=== PATIENT | male | born 1950 | race Caucasian/White ===

== ENCOUNTER 2018-05-28 13:38 | Inpatient (IN) ==
[2018-05-28] MEDS ORDERED: DUONEB (A & A) INH ONE (14:14)
[2018-05-28] MEDS ORDERED: SOLU-MEDROL IV ONE (14:14)
[2018-05-28 14:51] LABS: BE 3.4 mmoll (-3.0-3.0); BLOOD TYPE ARTERIAL; HCO3-(ACT) 27.4 mmoll (20.0-26.0); O2(CT) 15.2 mL/dL (15.0-23.0); PO2(98.6) 89 mmHg (60-100); SAMPLE BLOOD; SAO2 98.4 % (95.0-100.0); pH(98.6) 7.27 (7.35-7.45)
[2018-05-28 14:53] LABS: BASO# 0.05 X1000 (0.0-0.2); BASO% 0.5 % (0.0-0.8); EOS# 0.32 X1000 (0.0-0.7); HEMATOCRIT 35.9 % (42.0-52.0); HEMOGLOBIN 11.1 g/dL (14.0-18.0); IMM GRAN# 0.05 X1000 (0.0-0.04); IMM GRAN% 0.5 % (0.0-0.5); LYMPH# 1.71 X1000 (1.2-3.4); MCH 31.5 PG (27-31); MCHC 30.9 g/dL (33-37); MONO# 0.66 X1000 (0.11-0.59); MONO% 6.2 % (1.7-9.3); MPV 11.2 FL (7.4-10.4); NEUT# 7.91 X1000 (1.4-6.5); NEUT% 73.8 % (42.2-75.2); PLT 152 X1000 (130-400); RBC 3.52 XMIL (4.7-6.1); RDW 13.4 % (11.5-14.5)
[2018-05-28 14:53] LABS: PCO2(98.6) 70 mmHg (35-45)
[2018-05-28 14:54] LABS: ALLEN TEST YES; MODALITY CANNULA; O2HB 89.5 % (95.0-99.0)
--- NOTE | 2018-05-28 14:58 | Diag Imaging Result Doc PS360 ---
EXAM: CT HEAD W/O CONTRAST HISTORY: passed out TECHNIQUE: CT head without contrast COMPARISON: 01/12/2018 FINDINGS: No parenchymal hemorrhage. No epidural or subdural hematoma. No subarachnoid hemorrhage. There are mild microvascular ischemic changes. No mass identified on this noncontrasted exam. No hydrocephalus. No sinus opacification. Minimal mucus in the ethmoid and right sphenoid sinuses. IMPRESSION: 1.No hemorrhage 2.Mild microvascular ischemic changes. This exam was performed using automated exposure control, adjustment of mA or kV according to patient size, and/or use of iterative reconstruction technique. Electronically signed by Barrie Garcia 05/28/2018 2:56 PM
--- NOTE | 2018-05-28 15:03 | Diag Imaging Result Doc PS360 ---
EXAM: CHEST-1 VIEW HISTORY: cough TECHNIQUE: Chest single view COMPARISON: 01/12/2018 FINDINGS: The lungs are well expanded. The heart is borderline mildly enlarged. The vessels are not distended. There are no infiltrates. No effusion identified. IMPRESSION: No pneumonia. Electronically signed by Barrie Garcia 05/28/2018 3:01 PM
[2018-05-28 15:09] LABS: URINE BACTERIA 1+ /HFP; URINE EPITHELIAL CELLS <10 /HPF (<10); URINE RBC <10 /HPF (<10)
[2018-05-28 15:10] LABS: BILIRUBIN URINE NEGATIVE (NEGATIVE); BLOOD URINE TRACE (NEGATIVE); CLARITY SLIGHTLY CLOUDY (CLEAR); COLOR YELLOW; GLUCOSE URINE NEGATIVE (NEGATIVE); KETONE URINE NEGATIVE (NEGATIVE); LEUKOCYTES URINE TRACE (NEGATIVE); NITRITE URINE NEGATIVE (NEGATIVE); PROTEIN URINE TRACE mg/dL (NEGATIVE); SP GRAVITY URINE 1.015; URINE SOURCE CLEAN CATCH; UROBILINOGEN URINE NORMAL
[2018-05-28 15:32] LABS: ALBUMIN 4.2 g/dL (3.5-5.0); CALCIUM 8.8 mg/dL (8.8-10.2); CREATININE 1.6 mg/dL (0.7-1.2); POTASSIUM 4.7 mmol/L (3.5-5.1); TOTAL BILIRUBIN 0.2 mg/dL (0.20-1.00)
[2018-05-28 17:04] LABS: BE 3.4 mmoll (-3.0-3.0); BLOOD TYPE ARTERIAL; HCO3-(ACT) 27.4 mmoll (20.0-26.0); METHB 1.1 % (0.0-1.5); O2(CT) 15.5 mL/dL (15.0-23.0); PO2(98.6) 71 mmHg (60-100); SAMPLE BLOOD; SAO2 96.7 % (95.0-100.0); THB 12.4 g/dL (11.5-17.4); pH(98.6) 7.28 (7.35-7.45)
[2018-05-28 17:10] LABS: MODALITY BI PAP; O2HB 88.6 % (95.0-99.0); PCO2(98.6) 68 mmHg (35-45)
[2018-05-28 17:11] LABS: ALLEN TEST YES; SRATE 14 BPM
[2018-05-28] MEDS ORDERED: ROCEPHIN IV ONE (17:36)
[2018-05-28 18:10] LABS: UR AMPHETAMINES QUAL NONE DETECTED (NONE DETECT); UR BARBITUATES QUAL NONE DETECTED (NONE DETECT); UR BENZODIAZEPIN QUAL PRESUMPTIVE POSITIVE (NONE DETECT); UR CANNABINOIDS QUAL NONE DETECTED (NONE DETECT); UR COCAINE QUAL NONE DETECTED (NONE DETECT); UR METHADONE QUAL NONE DETECTED (NONE DETECT); UR METHAMPHETAMINE QUAL NONE DETECTED (NONE DETECT); UR OPIATES QUAL PRESUMPTIVE POSITIVE (NONE DETECT); UR OXYCODONE QUAL PRESUMPTIVE POSITIVE (NONE DETECT); UR PCP QUAL NONE DETECTED (NONE DETECT); UR PROPOXYPHENE QUAL NONE DETECTED (NONE DETECT); UR TCA QUAL NONE DETECTED (NONE DETECT)
[2018-05-28] MEDS ORDERED: NORCO-5 PO ONE ×3 (18:21→18:56)
[2018-05-28] MEDS ORDERED: ZOFRAN IV PRN (18:56)
[2018-05-28] MEDS: DUONEB (A & A) INH SCH ×2 (20:40→23:38)
[2018-05-28] MEDS: NS 1,000 ML IV SCH (21:08)
[2018-05-28] MEDS: SEROQUEL PO SCH (21:08)
[2018-05-28] MEDS: RESTORIL PO SCH (21:09)
[2018-05-28] MEDS: SOLU-MEDROL IV SCH (23:26)
[2018-05-29] MEDS: SOLU-MEDROL IV SCH ×2 (06:05→15:22)
[2018-05-29 06:07] LABS: BE 4.8 mmoll (-3.0-3.0); BLOOD TYPE ARTERIAL; HCO3-(ACT) 28.6 mmoll (20.0-26.0); O2(CT) 16.4 mL/dL (15.0-23.0); O2HB 93.6 % (95.0-99.0); PO2(98.6) 74 mmHg (60-100); SAMPLE BLOOD; SAO2 97.3 % (95.0-100.0); THB 12.4 g/dL (11.5-17.4); pH(98.6) 7.36 (7.35-7.45)
[2018-05-29 06:11] LABS: ALLEN TEST YES; MODALITY BI PAP; PCO2(98.6) 56 mmHg (35-45)
[2018-05-29] MEDS: DUONEB (A & A) INH SCH ×5 (07:25→23:05)
[2018-05-29 07:49] LABS: CREATININE 1.2 mg/dL (0.7-1.2); POTASSIUM 5.2 mmol/L (3.5-5.1)
[2018-05-29] MEDS ORDERED: ROCEPHIN 1 GM in NS 50 ML IV SCH (08:45)
[2018-05-29] MEDS: BUSPAR PO SCH (08:46)
[2018-05-29] MEDS: PRINIVIL PO SCH (08:47)
[2018-05-29] MEDS: NEURONTIN PO SCH (08:47)
[2018-05-29] MEDS: ZITHROMAX PO SCH (08:50)
--- NOTE | 2018-05-29 10:23 | PROVIDER DOCUMENTATION ---
This chart was entered by Romi Miller Scribe, acting as scribe for Charline Alford MD. HPI-Respiratory General - General Chief Complaint: General Adult Stated Complaint: DIZZINESS.FAINTING Time Seen by Provider: 05/28/18 14:12 Source: patient Allergies/Adverse Reactions: Patient Allergies Allergy/AdvReac Type Severity Reaction Status Date / Time morphine Allergy Mild ITCHING Verified 05/28/18 14:19 Penicillins Allergy RASH Verified 05/28/18 14:19 Home Medications: Home Medication List Medication Instructions Recorded Confirmed Last Taken Type Albuterol Sulfate [Ventolin Hfa] 2 puff INH Q4-6H PRN PRN 01/12/18 05/28/18 Unknown History Lisinopril 1 tab PO DAILY 01/12/18 05/28/18 01/11/18 History Gabapentin [Neurontin] 300 mg PO DAILY #15 cap 01/15/18 05/28/18 Unknown Rx Omeprazole 1 cap PO DAILY #15 capsule. 01/15/18 05/28/18 Unknown Rx Buspirone HCl 10 mg PO DAILY 05/28/18 05/28/18 Unknown History Fluticasone/Salmeterol [Advair 1 puff INH BID 05/28/18 05/28/18 Unknown History 500-50 Diskus] Furosemide 1 tab PO DAILY 05/28/18 05/28/18 Unknown History Meloxicam 15 mg PO DAILY 05/28/18 05/28/18 Unknown History Potassium Chloride 10 meq PO DAILY 05/28/18 05/28/18 Unknown History Quetiapine Fumarate 50 mg PO QHS 05/28/18 05/28/18 Unknown History Temazepam 30 mg PO QHS 05/28/18 05/28/18 Unknown History Tizanidine HCl 4 mg PO BID 05/28/18 05/28/18 Unknown History - History of Present Illness-Resp Nature of Presenting Problem: 67yom with hx of COPD, HTN, and kidney stones c/o headache for 2 days with syncopal episode, cough, and wheezing since last night. He reports he had a syncopal episode with loc last night while walking in the kitchen. He reports he is a current smoker. He reports he is on oxygen at home. He reports he walks without assistance and drives his private vehicle without assistance. He denies fever, chills, nausea, vomiting, diarrhea, cp. The patient's is at bedside. Quality of Pain: reports: aching Severity in ED: reports: mild Onset/Duration: reports: 2 days ago, last night Timing: reports: still present, intermittent, constant Cough Quality/Degree: reports: mild, dry cough Episode Frequency: other (hx of COPD) Current Respiratory Medication Therapy: Initiated see nurses note Modifying Factors: improves with: nothing Associated Symptoms: reports: cough, wheezing. denies: fever/chills Similar Symptoms Previously?: No Recently seen or treated by another doctor?: No Review of Systems - Adult - REVIEW OF SYSTEMS - ADULT Constitutional: denies: chills, fever Eyes: denies: discharge, dry eyes Ears, Nose, Mouth & Throat: denies: ear discharge, ear pain Cardiovascular: denies: chest pain, palpitations Respiratory: reports: cough, wheezing. denies: shortness of breath Gastrointestinal: denies: abdominal pain, nausea, vomiting Genitourinary: denies: dysuria, hematuria Musculoskeletal: denies: back pain, muscle aches, muscle weakness Integumentary: reports: no symptoms reported Neurological: reports: headache/migraines, syncope. denies: dizziness/vertigo Psychiatric: reports: no symptoms reported Endocrine: reports: no symptoms reported Hematologic/Lymphatic: reports: no symptoms reported Allergic/Immunologic: reports: no symptoms reported All Other Systems: Reviewed and Negative Past History - Adult - PAST MEDICAL HISTORY-ADULT Review of Records: reports: Old Records Reviewed, Nursing Assessment Review, Medications Reviewed Major Childhood Illnesses: reports: denies history Cardiovascular: reports: HTN Respiratory: reports: COPD Gastrointestinal: reports: cholelithiasis Genitourinary: reports: kidney stones Musculoskeletal: reports: arthritis (gout), chronic pain (back problems, shoulders and hips.), intervertebral disc disease Other Conditions: reports: cataract/glaucoma, other (several accidental overdoses due to overuse of pain medications) - PRIOR SURGERIES/PROCEDURES Surgical/Procedure History: reports: cholecystectomy, back/neck (cervical diskectomy, ), other (kidneystones) - PRIOR HOSPITALIZATIONS Prior Hospitalizations: reports: none - IMMUNIZATION STATUS Childhood Immunizations: See Nurse Assessment Flu Vaccine: See Nurse Assessment - FAMILY HISTORY Family History: reviewed, not pertinent - SOCIAL HISTORY Smoking: cigarettes, less than 1 pack/day Substance Use: denies Living Situation: family Physical Exam-General - PHYSICAL EXAM-ADULT Initial Vital Signs Reviewed: Yes - CONSTITUTIONAL General Appearance: alert, mild distress, other (pt is on oxygen via nasal cannula) - EYES Eyes: PERRL/EOMI, pink conjunctivae - NECK Neck: non-tender. negative: C-spine tenderness - RESPIRATORY Respiratory: decreased breath sounds, crackles, rales, rhonchi, wheezing - CARDIOVASCULAR Cardiovascular: regular rate, rhythm, no murmur - GASTROINTESTINAL (ABDOMEN) Abdominal Exam: non tender, soft, distended - MUSCULOSKELETAL Extremity: non-tender, pedal edema (+2) - SKIN Integumentary: normal color, warm/dry - NEUROLOGIC Neurologic: grossly normal, no motor/sensory deficits - PSYCHIATRIC Psych/Mental Status: normal mood/affect, normal thought content, normal thought process, oriented x 3 Progress - PLAN OF CARE/RESULTS Progress/Plan/Lab Results: Laboratory Results - last 24 hr 05/28/18 05/28/18 05/28/18 14:23 14:35 14:35 WBC 10.70 RBC 3.52 L Hgb 11.1 L Hct 35.9 L MCV 102.0 H MCH 31.5 H MCHC 30.9 L RDW Std Deviation 13.4 Plt Count 152 MPV 11.2 H Immature Gran % (Auto) 0.5 Neut % (Auto) 73.8 Lymph % (Auto) 16.0 L Peach % (Auto) 6.2 Eos % (Auto) 3.0 Baso % (Auto) 0.5 Immature Gran # (Auto) 0.05 H Neut # (Auto) 7.91 H Lymph # (Auto) 1.71 Peach # (Auto) 0.66 H Eos # (Auto) 0.32 Baso # (Auto) 0.05 Specimen Type ARTERIAL Sample Site R RADIAL pH 7.27 L pCO2 70 H* pO2 89 HCO3 27.4 H Base Excess 3.4 H Oxyhemoglobin 89.5 L* ABG O2 Sat (Calculated) 15.2 ABG O2 Saturation 98.4 ABG Carboxyhemoglobin 8.00 H* ABG Methemoglobin 1.0 Alexander Test YES A-a O2 Difference 52.0 Total Hemoglobin 12.0 Lactate 0.40 L Liter Flow 3.0 Blood Gas Modality CANNULA Spontaneous Rate FiO2 % 32.0 Inspiratory BiPAP Expiratory BiPAP Sodium 144 Potassium 4.7 Chloride 105 Carbon Dioxide 30 Anion Gap 9 BUN 30 H Creatinine 1.6 H Estimated GFR/1.73 m2 43 BUN/Creatinine Ratio 19 Glucose 97 Calculated Osmolality 293 Calcium 8.8 Total Bilirubin 0.20 AST 33 ALT 40 Alkaline Phosphatase 111 Troponin T [id number]-[id number] Pept Total Protein 7.0 Albumin 4.2 Globulin 3.0 Albumin/Globulin Ratio 2.0 Plasma Lactate Urine Source Urine Color Urine Clarity Urine pH Ur Specific [place] Urine Protein Urine Ketones Urine Blood Urine Nitrite Urine Bilirubin Urine Urobilinogen Urine Microscopic RBC Urine WBC Urine Microscopic WBC Ur Epithelial Cells Urine Bacteria Urine Glucose Urine Opiates Screen Ur Oxycodone Screen Urine Methadone Screen U Propoxyphene Qual Ur Barbituates Screen Ur Tricyclics Screen Ur Phencyclidine Scrn Ur Amphetamines Screen U Methamphetamines Scrn U Benzodiazepines Scrn Urine Cocaine Screen U Cannabinoids Screen 05/28/18 05/28/18 05/28/18 14:35 14:35 14:35 WBC RBC Hgb Hct MCV MCH MCHC RDW Std Deviation Plt Count MPV Immature Gran % (Auto) Neut % (Auto) Lymph % (Auto) Peach % (Auto) Eos % (Auto) Baso % (Auto) Immature Gran # (Auto) Neut # (Auto) Lymph # (Auto) Peach # (Auto) Eos # (Auto) Baso # (Auto) Specimen Type Sample Site pH pCO2 pO2 HCO3 Base Excess Oxyhemoglobin ABG O2 Sat (Calculated) ABG O2 Saturation ABG Carboxyhemoglobin ABG Methemoglobin Alexander Test A-a O2 Difference Total Hemoglobin Lactate Liter Flow Blood Gas Modality Spontaneous Rate FiO2 % Inspiratory BiPAP Expiratory BiPAP Sodium Potassium Chloride Carbon Dioxide Anion Gap BUN Creatinine Estimated GFR/1.73 m2 BUN/Creatinine Ratio Glucose Calculated Osmolality Calcium Total Bilirubin AST ALT Alkaline Phosphatase Troponin T < 0.010 Lus-P-Mpiwhaqvoti Pept 1406 H Total Protein Albumin Globulin Albumin/Globulin Ratio Plasma Lactate < 0.2 L Urine Source Urine Color Urine Clarity Urine pH Ur Specific [place] Urine Protein Urine Ketones Urine Blood Urine Nitrite Urine Bilirubin Urine Urobilinogen Urine Microscopic RBC Urine WBC Urine Microscopic WBC Ur Epithelial Cells Urine Bacteria Urine Glucose Urine Opiates Screen Ur Oxycodone Screen Urine Methadone Screen U Propoxyphene Qual Ur Barbituates Screen Ur Tricyclics Screen Ur Phencyclidine Scrn Ur Amphetamines Screen U Methamphetamines Scrn U Benzodiazepines Scrn Urine Cocaine Screen U Cannabinoids Screen 05/28/18 05/28/1805/28/19 14:35 14:35 16:37 WBC RBC Hgb Hct MCV MCH MCHC RDW Std Deviation Plt Count MPV Immature Gran % (Auto) Neut % (Auto) Lymph % (Auto) Peach % (Auto) Eos % (Auto) Baso % (Auto) Immature Gran # (Auto) Neut # (Auto) Lymph # (Auto) Peach # (Auto) Eos # (Auto) Baso # (Auto) Specimen Type ARTERIAL Sample Site L RADIAL pH 7.28 L pCO2 68 H* pO2 71 HCO3 27.4 H Base Excess 3.4 H Oxyhemoglobin 88.6 L* ABG O2 Sat (Calculated) 15.5 ABG O2 Saturation 96.7 ABG Carboxyhemoglobin 7.30 H* ABG Methemoglobin 1.1 Alexander Test YES A-a O2 Difference 72.0 Total Hemoglobin 12.4 Lactate 0.50 Liter Flow Blood Gas Modality BI PAP Spontaneous Rate 14 FiO2 % 32.0 Inspiratory BiPAP 16.0 Expiratory BiPAP 6.0 Sodium Potassium Chloride Carbon Dioxide Anion Gap BUN Creatinine Estimated GFR/1.73 m2 BUN/Creatinine Ratio Glucose Calculated Osmolality Calcium Total Bilirubin AST ALT Alkaline Phosphatase Troponin T [id number] Pept Total Protein Albumin Globulin Albumin/Globulin Ratio Plasma Lactate Urine Source CLEAN CATCH Urine Color YELLOW Urine Clarity SLIGHTLY CLOUDY A Urine pH 6.0 Ur Specific [place] 1.015 Urine Protein TRACE A Urine Ketones NEGATIVE Urine Blood TRACE Urine Nitrite NEGATIVE Urine Bilirubin NEGATIVE Urine Urobilinogen NORMAL Urine Microscopic RBC <10 Urine WBC TRACE A Urine Microscopic WBC 10-20 A Ur Epithelial Cells <10 Urine Bacteria 1+ Urine Glucose NEGATIVE Urine Opiates Screen PRESUMPTIVE POSITIVE A Ur Oxycodone Screen PRESUMPTIVE POSITIVE A Urine Methadone Screen NONE DETECTED U Propoxyphene Qual NONE DETECTED Ur Barbituates Screen NONE DETECTED Ur Tricyclics Screen NONE DETECTED Ur Phencyclidine Scrn NONE DETECTED Ur Amphetamines Screen NONE DETECTED U Methamphetamines Scrn NONE DETECTED U Benzodiazepines Scrn PRESUMPTIVE POSITIVE A Urine Cocaine Screen NONE DETECTED U Cannabinoids Screen NONE DETECTED Orders Category Date Time Status Admit - [facility] Routine AdmDCTranf 05/28/18 18:11 Active Activity - Up Ad Anca ORDERED Care 05/28/18 18:11 Active Saline Loc DIRECTED Care 05/28/18 18:11 Active Saline Loc NOW Care 05/28/18 14:14 Completed Vital Signs Order ARRIVAL TO ROOM Care 05/28/18 18:11 Active Z-Document. for Tele Applied ORDERED Care 05/28/18 18:13 Completed low salt [Heart Healthy Diet] Diet 05/28/18 18:56 Active CHEST-1 VIEW [RAD] Stat Exams 05/28/18 14:[address] HEAD W/O CONTRAST [CT] Stat Exams 05/28/18 14:18 Completed ABG [RESP] Routine Lab 05/28/18 14:23 Completed ABG [RESP] Routine Lab 05/28/18 16:37 Completed ABG [RESP] Routine Lab 05/29/18 05:41 Completed BLOOD CULTURE [BLDCUL] Stat Lab 05/28/18 15:10 Results BMP [BASIC METABOLIC PANEL] [CHEM] Routine Lab 05/29/18 05:55 Completed CBC WITH DIFF [HEME] Stat Lab 05/28/18 14:35 Completed COMPREHENSIVE METABOLIC PANEL [CHEM] Stat Lab 05/28/18 14:35 Completed LACTATE, PLASMA [CHEM] Stat Lab 05/28/18 14:35 Completed PRO B-NATRIURETIC PEPTIDE Stat Lab 05/28/18 14:35 Completed TROPONIN T Stat Lab 05/28/18 14:[address] W/POSS RFLX CULT [URINALYSIS] Stat Lab 05/28/18 14:35 Completed URINE CULTURE [RM] Routine Lab 05/28/18 15:11 Results [address]UG SCREEN [address] Routine Lab 05/28/18 14:35 Completed 0.9% Sodium Chloride Inj [Ns] 1,000 ml Med 05/28/18 18:56 Active IV 75 mls/hr Albuterol 2.5MG/Ipratrop 0.5MG [Duoneb (A & A)] Med 05/28/18 14:14 Discontinued 3 ml INH NOW ONE Albuterol 2.5MG/Ipratrop 0.5MG [Duoneb (A & A)] Med 05/28/18 19:30 Active 3 ml INH [id number].WA Buspirone [Buspar] Med 05/29/18 09:00 Active 10 mg PO DAILY CefTRIAXONE [Rocephin] Med 05/28/18 17:36 Discontinued 1 gm IV NOW ONE CefTRIAXONE [Rocephin] 1 gm Med 05/29/18 18:00 Active 0.9% Sodium Chloride Inj [Ns] 50 ml IV Q24H Gabapentin [Neurontin] Med 05/29/18 09:00 Active 300 mg PO DAILY Hydrocodone/APAP 5 mg/325 mg [[place]-5] Med 05/28/18 18:21 Discontinued 1 each PO NOW ONE Hydrocodone/APAP 5 mg/325 mg [[place]-5] Med 05/28/18 18:56 Discontinued 1 each PO NOW ONE LISINOpril [Prinivil] Med 05/29/18 09:00 Active 20 mg PO DAILY Methylprednisolone Sod Succ [Solu-Medrol] Med 05/28/18 14:14 Discontinued 125 mg IV NOW ONE Methylprednisolone Sod Succ [Solu-Medrol] Med 05/28/18 23:00 Active 80 mg IV Q8H Ondansetron [Zofran] Med 05/28/18 18:56 Active 4 mg IV Q4H PRN PRN Quetiapine [Seroquel] Med 05/28/18 21:00 Active 50 mg PO QHS Temazepam [Restoril] Med 05/28/18 21:00 Active 30 mg PO QHS Aerosol Treatments Routine Oth 05/28/18 14:17 Completed Aerosol Treatments Routine Ot 05/28/18 18:56 Completed Aerosol Treatments Stat Oth 05/28/18 14:17 Completed Aerosol Treatments Stat Oth 05/28/18 18:56 Completed BIPAP Stat Ot 05/28/18 15:00 Active Oxygen Device Routine Ot 05/28/18 18:13 Completed Pulse Oximetry Stat Oth 05/28/18 14:14 Completed Telemetry [OM.EQ] Routine Oth 05/28/18 18:11 Active EKG [EKG] Stat Ther 05/28/18 14:18 Ordered Transfer/Admit Order [TRANSFER] Routine Transfer 05/28/18 17:56 Completed At 17:02 patient refused to be admitted as inpatient. Result Diagrams: 05/28/18 14:35 05/29/18 05:55 - XRAY 1 XRAY Study: Chest Impression: Abnormal ( FINDINGS: The lungs are well expanded. The heart is borderline mildly enlarged. The vessels are not distended. There are no infiltrates. No effusion identified. IMPRESSION: No pneumonia.) - CT/MRI 1 CT Study: Head Impression: Abnormal (FINDINGS: No parenchymal hemorrhage. No epidural or subdural hematoma. No subarachnoid hemorrhage. There are mild microvascular ischemic changes. No mass identified on this noncontrasted exam. No hydrocephalus. No sinus opacification. Minimal mucus in the ethmoid and right sphenoid sinuses. IMPRESSION: 1.No hemorrhage 2.Mild microvascular ischemic changes.) - CONSULTS/PCP/HOSPITALIST Notification #1 *Consult/PCP/Hospitalist*: Dr. Michel Time Discussed: 17:25 Consult Disposition: Admit Departure - Departure Date of Disposition Decision: 05/28/17 Time of Disposition Decision: 21:00 DIAGNOSIS: Tobacco abuse disorder, COPD exacerbation Disposition: HOME 01 Certified Medical Emergency: Emergent Condition: Stable - Critical Care Note This patient required my direct & personal management of CC.: Yes Total Time (mins): 35 Critical Care Statement: This patient required my direct personal management to treat or rule out processes, the absence of which, could potentiallly result in sudden, clinically significant life or limb threatening deterioration. Attestation - Physician/ JOHNNY Attestation Patient care was provided by Advanced Practice Provider:: No The physician spent face to face time with patient:: Yes Advanced Practice Provider documentation review:: Supervising physician onsite and consulted in the evaluation and care of this patient. The physician did have a face to face encounter with the patient. This chart was documented by the indicated scribe, (Romi Miller, Jennifer) and accurately reflects the services I performed and decisions made by me, Charline Alford MD, as attested by the provider's signature.
[2018-05-29] MEDS: NS 1,000 ML IV SCH (11:42)
[2018-05-29] MEDS: NORCO-10 PO PRN ×2 (13:18→20:58)
[2018-05-29] MEDS ORDERED: PREPARATION H OINT TOP PRN (13:23)
--- NOTE | 2018-05-29 16:05 | HISTORY AND PHYSICAL ---
CHIEF COMPLAINT: Dizziness and fainting. HISTORY OF PRESENT ILLNESS: This is a 67-year-old gentleman with a history of COPD, hypertension, who presented to the emergency room complaining of having a headache for 2 days, having a syncopal episode the night prior to presenting to the emergency room. He stated that he was walking in the kitchen around 8 p.m. He stated he passed out, he does not know how long, there was no injury. He had no warnings. He denied any incontinence of urine or stool. He does use home O2 and he was not using his oxygen at that time. He has had no further episodes. He has had no difficulty walking nor dizziness. He does state that he has had a headache for 2 days, he describes this as an achy type pain that is constant. He denies any change in vision. He denies any light sensitivity, any nasal drainage. He denies sore throat or productive cough. His arrival saturation was 85% on room air and sat's have increased to 94-96%, he was placed on BIPAP shortly after that for a while, then he was placed on 3 liters nasal cannula with sat's 96-100, then back on BIPAP for the night and sat's stayed around 97%. This morning he is back on 3 liters nasal cannula with sat's that are 94-98%. ABG revealed a PCO2 of 70, PO2 89, and pH 7.2. After being placed on BIPAP this morning pH is 7.36 with a PCO2 of 56 and PO2 74. He did have a carboxyhemoglobin level of 8 on arrival, it is 2.8 this morning. PAST MEDICAL HISTORY: 1. Chronic pain on chronic prescription opiates via a pain clinic. 2. COPD on home O2. 3. Continued tobacco use. 4. History of illicit drug use. PAST SURGICAL HISTORY: Cholecystectomy, kidney stone removal. ALLERGIES: Morphine which causes itching and penicillin causes a rash. HOME MEDICATIONS: A list will be obtained by the nursing staff, once verified we will review and restart as is appropriate. REVIEW OF SYSTEMS: Discussed with the patient with pertinent positives stated in the HPI. He denied any chest pain, palpitations, any fever, productive cough, any nausea, vomiting, diarrhea, constipation, black or bloody vomitus or stool, any hematuria, dysuria, frequency, urgency. PHYSICAL EXAMINATION: GENERAL: This is a 67-year-old gentleman who is sitting up on the bed watching TV in distress. VITAL SIGNS: Blood pressure 148/59. Heart rate 76. Respirations 18. Temperature 97.3. O2 sat's 96-97% on BIPAP at 32% oxygen. EYES: Pupils equal, round, react to light. EOMs are intact. Sclerae are anicteric. HEENT: Head is normocephalic, atraumatic. Mucous membranes are moist. NECK: Supple with trachea midline. CARDIOVASCULAR: Regular rate and rhythm. S1 and S2 appreciated. No murmurs, rubs, gallops. He has no lower extremity edema. PULMONARY: Breath sounds with rhonchi and wheezes scattered throughout, rhonchi do partially clear to cough. Chest rises and falls symmetrically with respiration. GASTROINTESTINAL: Abdomen is soft, nontender, nondistended with bowel sounds in all 4 quadrants. NEUROLOGIC: He is alert and oriented x3. SKIN: Warm and dry. LABORATORY: WBC 10.7, hemoglobin 11.1, hematocrit 35.9, platelets 152. Sodium 144, potassium 4.7, BUN 30, creatinine 1.6, glucose 97. Urine drug screen is presumptive positive for opiates, oxycodone, and benzodiazepines. CT of the head reveals no hemorrhage, mild microvascular ischemic changes. Chest x-ray reveals no pneumonia, lungs are well expanded, heart is borderline mildly large, vessels are not distended, there are no infiltrates. Blood cultures are pending. Urine culture revealed no growth. ASSESSMENT: 1. Chronic obstructive pulmonary disease exacerbation. 2. Acute hypercapnic, hypoxic respiratory failure. 3. Acute kidney injury. 4. Hypertension. 5. Chronic back pain with chronic opioid use. 6. Hyperkalemia. 7. Deep venous thrombosis and gastrointestinal prophylaxis. PLAN: 1. The patient has been admitted to the medical surgical floor and placed on telemetry which we will continue. He is on BIPAP at present. 2. We will give DuoNebs q.4 hours, give IV steroids to taper, will give gentle IV hydration. 3. We will give antibiotics coverage of Rocephin and azithromycin. 4. We will hold any potassium supplements and trend electrolytes. 5. We will start his [place] 10 q.8 hours p.r.n. and monitor as the patient does have a history of over taking his pain medication as well as taking Xanax from friends or off the street. We will continue to monitor. 6. For DVT prophylaxis we will use SCDs and for GI prophylaxis Prilosec. Further treatment pending hospital course. Dictated by JOLEEN Bates for Aneesh Mccallum MD This chart was documented by, JOLEEN Bates and accurately reflects the services performed, treatment plan and medical decisions as attested by the providers signature Aneesh Mccallum MD. cc: JOLEEN Bates MD
[2018-05-29] MEDS: ROCEPHIN 1 GM in NS 50 ML IV SCH (17:23)
[2018-05-29] MEDS ORDERED: MBX SOLUTION MT PRN (19:38)
[2018-05-29] MEDS: RESTORIL PO SCH (20:58)
[2018-05-29] MEDS: SEROQUEL PO SCH (20:59)
[2018-05-30] MEDS: SOLU-MEDROL IV SCH ×3 (00:15→18:07)
[2018-05-30] MEDS: NS 1,000 ML IV SCH ×2 (00:15→13:32)
[2018-05-30] MEDS: NORCO-10 PO PRN ×3 (04:43→21:44)
[2018-05-30 06:23] LABS: HEMATOCRIT 36.7 % (42.0-52.0); HEMOGLOBIN 11.2 g/dL (14.0-18.0); MCH 30.1 PG (27-31); MCHC 30.5 g/dL (33-37); MCV 98.7 FL (81-99); MPV 11.2 FL (7.4-10.4); RBC 3.72 XMIL (4.7-6.1); RDW 13.4 % (11.5-14.5); WBC 14.35 X1000 (4.8-10.8)
[2018-05-30 06:32] LABS: CALCIUM 8.8 mg/dL (8.8-10.2); CREATININE 1.2 mg/dL (0.7-1.2); POTASSIUM 4.9 mmol/L (3.5-5.1)
[2018-05-30] MEDS: DUONEB (A & A) INH SCH ×5 (08:14→23:17)
[2018-05-30] MEDS: ZITHROMAX PO SCH (09:08)
[2018-05-30] MEDS: NEURONTIN PO SCH (09:08)
[2018-05-30] MEDS: PRINIVIL PO SCH (09:08)
[2018-05-30] MEDS: BUSPAR PO SCH (09:08)
--- NOTE | 2018-05-30 11:29 | PROGRESS NOTE ---
DATE: 05/30/2018 SUBJECTIVE: Patient reports breathing better. Denies any fever, chills, any chest pressure. OBJECTIVE: Vital Signs: Temperature 97.3 degrees, heart rate 78, respiratory rate 20, blood pressure 155/74 O2 saturation 97% on 2 L on 3 L nasal cannula. General Examination: This is a chronically ill-looking, 67-year-old male, lying in bed, in no acute distress. HEENT: Head is normocephalic, atraumatic. Neck: No JVD noted. No carotid bruits. No lymphadenopathy. No thyromegaly. Cardiovascular: S1, S2 heard. No murmurs, gallops, or rubs. Regular rate and rhythm. Respiratory: There is a decreased air entry globally with rhonchi and wheezing present in both pulmonary bases. Patient not using any accessory muscles or having work of breathing. Abdomen: Soft. Nontender to palpation. Bowel sounds present. No organomegaly. Extremities: No clubbing, cyanosis, or edema. Peripheral pulses present in both legs. Neurological: Patient alert and oriented x3. Moves 4 extremities. LABORATORY DATA: White cell count 14.35, hemoglobin 11.2, hematocrit 36.7, platelets 211,000. ABG is still pending at the time of dictation. The BMP shows normal renal function with potassium 5.2. ASSESSMENT AND PLAN: 1. Acute respiratory failure secondary to COPD exacerbation. Patient clinically is doing better, requiring less oxygen supplementation and clinically less wheezing noted. At this point, I think we need to continue with the current treatment that includes albuterol and Atrovent at 4 hours as scheduled. Intravenous steroids in this case, from 80 mg intravenous IV q.8 hours will go to 40 mg IV q.12 hours. Also, we will continue with antibiotics, in this case, ceftriaxone. 2. Acute hypercapnic hypoxic respiratory failure. CO2 has been going down. At this point, we will continue with the same management. 3. Acute kidney injury. That condition is completely resolved. 4. Hypertension, blood pressure is well controlled. We will continue with the same management. 5. Chronic back pain with chronic opiate use. The patient has been explained in depth about the reaction of pain medication and benzodiazepine and its effects on patient with pulmonary conditions like COPD. Patient has been explained in depth that he needs to use the least pain medication to provide pain relief. The patient acknowledged understanding. 6. Hyperkalemia, resolved. 7. Deep vein thrombosis prophylaxis with Lovenox. 8. Disposition. I think if patient continues to improve like yesterday, I think he will be discharged tomorrow. cc: Aneesh Mccallum MD
[2018-05-30 11:33] LABS: BE 4.5 mmoll (-3.0-3.0); BLOOD TYPE ARTERIAL; HCO3-(ACT) 28.4 mmoll (20.0-26.0); METHB 1.1 % (0.0-1.5); O2(CT) 15.9 mL/dL (15.0-23.0); PCO2(98.6) 43 mmHg (35-45); PO2(98.6) 70 mmHg (60-100); SAMPLE BLOOD; SAO2 97.3 % (95.0-100.0); pH(98.6) 7.44 (7.35-7.45)
[2018-05-30 11:36] LABS: ALLEN TEST YES; MODALITY CANNULA
[2018-05-30] MEDS: ROCEPHIN 1 GM in NS 50 ML IV SCH (18:07)
[2018-05-30] MEDS: SEROQUEL PO SCH (20:56)
[2018-05-30] MEDS: RESTORIL PO SCH (20:56)
[2018-05-31] MEDS: NS 1,000 ML IV SCH (04:06)
[2018-05-31] MEDS: NORCO-10 PO PRN (05:14)
[2018-05-31] MEDS: SOLU-MEDROL IV SCH (05:14)
[2018-05-31] MEDS: PRILOSEC PO SCH ×2 (05:15→06:00)
[2018-05-31 07:06] LABS: HEMATOCRIT 35.7 % (42.0-52.0); HEMOGLOBIN 11.2 g/dL (14.0-18.0); MCH 30.9 PG (27-31); MCHC 31.4 g/dL (33-37); MCV 98.6 FL (81-99); MPV 11.2 FL (7.4-10.4); RBC 3.62 XMIL (4.7-6.1); RDW 13.5 % (11.5-14.5); WBC 12.98 X1000 (4.8-10.8)
[2018-05-31 07:09] LABS: AGAP 7; BUN 25 mg/dL (8-22); CALCIUM 8.3 mg/dL (8.8-10.2); CHLORIDE 110 mmol/L (98-107); COSMO 294; CREATININE 1.1 mg/dL (0.7-1.2); ESTIMATED GFR > 60; GLUCOSE 115 mg/dL (70-104); POTASSIUM 4.2 mmol/L (3.5-5.1); SODIUM 145 mmol/L (136-145); TCO2 29 mmol/L (25-35)
[2018-05-31] MEDS: DUONEB (A & A) INH SCH ×2 (07:11→14:34)
[2018-05-31] MEDS: ZITHROMAX PO SCH (11:15)
[2018-05-31] MEDS: BUSPAR PO SCH (11:15)
[2018-05-31] MEDS: PRINIVIL PO SCH (11:15)
[2018-05-31] MEDS: NEURONTIN PO SCH (11:15)
[2018-05-31 11:53] VITALS: BP 166/72
--- NOTE | 2018-06-01 05:58 | DISCHARGE SUMMARY ---
ADMISSION DATE: 05/28/2018 DISCHARGE DATE: 05/31/2018 DIAGNOSES: 1. Acute respiratory failure secondary to chronic obstructive pulmonary disease exacerbation, resolved. 2. Acute hypercapnic hypoxic respiratory failure, resolved. 3. Acute kidney injury, resolved. 4. Hypertension. 5. Chronic back pain with chronic opiate use. 6. Hyperkalemia, resolved. DIAGNOSTICS: Chest x-ray revealed lungs well expanded, heart is borderline, mildly enlarged. Vessels are not distended. There are no infiltrates. No pneumonia. CT of the head revealed no hemorrhage, mild microvascular ischemic changes. HOSPITAL COURSE: Mr. Brody presented to the emergency room after having a syncopal episode. He is home O2 dependent, although at this time, he did not have his oxygen on. On arrival to the emergency room, his oxygen saturation was 85% on room air. He was placed on nasal cannula and O2 saturation have been 95% to 100%. He was noted to be hypercarbic with a pCO2 of 70.0. Serial blood gases were followed and today, his pCO2 was 43, actually with a pO2 of 70. Today, he denied any shortness of breath. He stated he was at his normal respiratory status. He denied any fever, chills, or any chest pressure. He was noted to be in acute kidney injury, having a creatinine of 1.6. He was given some gentle IV hydration. His creatinine is 1.1 today. Potassium did increase to 5.2, although is down 4.2 today. His blood cultures revealed no growth after 48 hours. The urine culture revealed no growth. Thankfully, today, he is doing better and he is ready for discharge. DISCHARGE VITAL SIGNS: Blood pressure is 166/72 with a heart rate of 75, respirations are 20, temperature is 98.1, degrees oral with O2 saturations 97% to 100% on 2 L nasal cannula. DISCHARGE PHYSICAL EXAMINATION: Cardiovascular: Regular rate and rhythm. S1 and S2 are appreciated. Pulmonary: Breath sounds are clear with no increased work of breathing noted. Gastrointestinal: Abdomen is soft, nontender, nondistended with bowel sounds in all 4 quadrants. Neurologic: He is alert and oriented x3. DISCHARGE MEDICATIONS: Seroquel 50 mg p.o. at bedtime, Restoril 30 mg p.o. at bedtime, Ventolin inhaler 2 puffs q.4-6 hours p.r.n. wheezing, Advair 50/500 one puff b.i.d., Neurontin 300 mg p.o. daily, Lisinopril 1 tablet daily, omeprazole daily, potassium chloride 10 mEq daily, Levaquin 750 mg daily for 7 days, Medrol Dosepak take as directed. FOLLOW UP: He is to follow up with his primary care physician or provider, Dr. Aggarwal in 1 week. He needs to call and schedule an appointment. He has been instructed to call to be seen sooner or return to the ER for recurring syncopal episodes, any chest pain, palpitations, temperature greater than 101, increasing shortness of breath, or for any questions or concerns that he may have. He is being discharged home in stable condition with family members. TIME SPENT: This is a greater than 30 minute discharge. Dictated by JOLEEN Bates for Aneesh Mccallum MD This chart was documented by, JOLEEN Bates and accurately reflects the services performed, treatment plan and medical decisions as attested by the providers signature Aneesh Mccallum MD. cc: JOLEEN Bates MD Neil Yeager, MD
== END 2018-05-31 12:45 | disposition home or self-care (01) | DRG 189 ==
LOC: P.ED 13:38 → SUATTDRO 18:32 → P.MEDSURG 18:32
PROVIDERS: ATTEND Internal Medicine
CPT/HCPCS: 70450; 71010; 71045; 80048; 80053; 80104; 80301; 80305; 81001; 82805; 83605; 83880; 84484; 85025; 85027; 87040; 87088; 93005; 94640; 94660; 94761; 96374; 96375; 99285; 99291; A9270; G0431; G0434; G0477; J0696; J2920; J2930; J7030

== ENCOUNTER 2018-10-11 18:05 | Inpatient (IN) ==
[~2018-10-11 18:05] MED LIST: KAYEXALATE PO ONE
[2018-10-11] MEDS ORDERED: DUONEB (A & A) INH ONE (18:07)
[2018-10-11] MEDS ORDERED: ZOFRAN IV ONE (18:10)
[2018-10-11] MEDS ORDERED: NARCAN IV ONE ×3 (18:10→20:31)
--- NOTE | 2018-10-11 18:13 | PROVIDER DOCUMENTATION ---
HPI-Respiratory General - General Stated Complaint: LOW O2 Time Seen by Provider: 10/11/18 18:05 Source: patient, EMS Allergies/Adverse Reactions: Patient Allergies Allergy/AdvReac Type Severity Reaction Status Date / Time morphine Allergy Mild ITCHING Verified 05/28/18 14:19 Penicillins Allergy RASH Verified 05/28/18 14:19 Home Medications: Home Medication List Medication Instructions Recorded Confirmed Last Taken Type Albuterol Sulfate [Ventolin Hfa] 2 puff INH Q4-6H PRN PRN 01/12/18 05/28/18 Unknown History Lisinopril 1 tab PO DAILY 01/12/18 05/28/18 01/11/18 History Gabapentin [Neurontin] 300 mg PO DAILY #15 cap 01/15/18 05/28/18 Unknown Rx Omeprazole 1 cap PO DAILY #15 capsule. 01/15/18 05/28/18 Unknown Rx Buspirone HCl 10 mg PO DAILY 05/28/18 05/28/18 Unknown History Fluticasone/Salmeterol [Advair 1 puff INH BID 05/28/18 05/28/18 Unknown History 500-50 Diskus] Furosemide 1 tab PO DAILY 05/28/18 05/28/18 Unknown History Potassium Chloride 10 meq PO DAILY 05/28/18 05/28/18 Unknown History Quetiapine Fumarate 50 mg PO QHS 05/28/18 05/28/18 Unknown History Temazepam 30 mg PO QHS 05/28/18 05/28/18 Unknown History Tizanidine HCl 4 mg PO BID 05/28/18 05/28/18 Unknown History Bisoprolol Fumarate/Hctz 1 tab PO DAILY 05/31/18 05/31/18 Unknown History [Bisoprolol-Hctz 2.5-6.25 mg Tb] Levofloxacin [Levaquin] 750 mg PO DAILY #7 tab 05/31/18 Unknown Rx Methylprednisolone [Medrol Dosepak] 4 mg PO DIRECTED #1 pkg 05/31/18 Unknown Rx - History of Present Illness-Resp Nature of Presenting Problem: 67 YOM PRESENTS VIA EMS FOR HYPOXIA. PT IS ALERT TO VOICE BUT CANNOT ANSWER QUESTIONS. THE REPORTS HE HAS BEEN ALTERED OVER THE LAST 24HRS, LOSING BALANCE, MUMBLING TO HIMSELF BUT DENIES FALLS. SHE REPORTS HE TAKES HIS MEDICATIONS PRESCRIBED. Severity in ED: reports: moderate Onset/Duration: reports: unsure Timing: reports: still present Associated Symptoms: reports: shortness of breath, other (AMS) Similar Symptoms Previously?: Yes Recently seen or treated by another doctor?: No Review of Systems - Adult - REVIEW OF SYSTEMS - ADULT ROS:: ROS per family (ROS COMPLETED PER INFORMATION OBTAINED FROM ) Constitutional: reports: no symptoms reported. denies: see HPI, chills, fever, fatique, night sweats, weight gain, weight loss, other Eyes: reports: no symptoms reported. denies: see HPI, discharge, dry eyes, decreased vision, blurred vision, double vision, eye pain, redness, other Ears, Nose, Mouth & Throat: reports: no symptoms reported. denies: see HPI, ear discharge, ear pain, hearing loss, tinnitus, epistaxis, sinus problem, nose pain , loose teeth, mouth/dental pain, mouth swelling, hoarseness, throat pain, throat swelling, other Cardiovascular: reports: no symptoms reported. denies: see HPI, chest pain, edema, heart murmur, irregular heart rate, orthopnea, palpitations, poor circulation, PND, syncope, other Respiratory: reports: chronic cough, cough, shortness of breath. denies: no symptoms reported, see HPI, dyspnea on exertion, excessive sputum production, hemoptysis, pleurisy, wheezing, other Gastrointestinal: reports: no symptoms reported. denies: see HPI, abdominal pain, hematemesis, constipation, diarrhea, difficulty swallowing, frequent heartburn, nausea, poor appetite, rectal bleeding, vomiting, other Genitourinary: reports: no symptoms reported. denies: see HPI, dysuria, discharge, frequency, flank pain, frequent UTI's, hematuria, hesitency, incontinence, urinary retention, urgency, other Musculoskeletal: reports: no symptoms reported. denies: see HPI, bone pain, back pain, frequent leg cramps, joint pain, joint swelling, muscle aches, muscle weakness, neck pain, other Integumentary: reports: no symptoms reported. denies: see HPI, hives, hair loss, itching, mole changes, nail changes, rash, skin sores/ulcer, skin thickening, other Neurological: reports: dizziness/vertigo, loss of balance, other (AMS) Psychiatric: reports: no symptoms reported. denies: see HPI, anxiety, anti- depressant use, alcohol/drug dependence, depression, emotional problems, insomnia, panic attacks, suicidal thoughts, other Endocrine: reports: no symptoms reported. denies: see HPI, change in skin pigment, excessive sweating, goiter, cold intolerance, heat intolerance, increased hunger, increased thirst, polyuria, other Hematologic/Lymphatic: reports: no symptoms reported. denies: see HPI, blood clots, easy bruising, low blood count, lymphedema, prolonged bleeding, swollen lymph nodes, transfusions, other Allergic/Immunologic: reports: no symptoms reported. denies: see HPI, allergic reactions, allergic rhinitis, asthma, eczema, food allergy, frequent infections, hay fever, hives, positive PPD, urticaria, other Past History - Adult - PAST MEDICAL HISTORY-ADULT Review of Records: reports: Old Records Reviewed, Nursing Assessment Review, Social history reviewed & non-contributory. Major Childhood Illnesses: reports: denies history Cardiovascular: reports: HTN Respiratory: reports: COPD Gastrointestinal: reports: cholelithiasis Genitourinary: reports: kidney stones Musculoskeletal: reports: arthritis (gout), chronic pain (back problems, shoulders and hips.), intervertebral disc disease Other Conditions: reports: cataract/glaucoma, other (several accidental overdoses due to overuse of pain medications) - PRIOR SURGERIES/PROCEDURES Surgical/Procedure History: reports: cholecystectomy, back/neck (cervical diskectomy, ), other (kidneystones) - PRIOR HOSPITALIZATIONS Prior Hospitalizations: reports: none - IMMUNIZATION STATUS Childhood Immunizations: See Nurse Assessment Flu Vaccine: See Nurse Assessment - FAMILY HISTORY Family History: reviewed, not pertinent Physical Exam-General - PHYSICAL EXAM-ADULT Initial Vital Signs Reviewed: Yes - CONSTITUTIONAL General Appearance: mild distress, lethargic - EYES Eyes: PERRL/EOMI - HEAD, EARS, NOSE, MOUTH & THROAT HENMT: normocephalic/atraumatic, moist mucous membranes, normal ENT inspection - NECK Neck: full range of motion - RESPIRATORY Respiratory: chest non-tender, crackles (COARSE CRACKLES), rhonchi - CARDIOVASCULAR Cardiovascular: normal peripheral pulses, regular rate, rhythm, no edema, no JVD - GASTROINTESTINAL (ABDOMEN) Abdominal Exam: normal bowel sounds, non tender, soft - LYMPHATIC Lymphatic: no adenopathy - MUSCULOSKELETAL Back Exam: normal inspection Extremity: non-tender - SKIN Integumentary: normal color, normal turgor, warm/dry - NEUROLOGIC Neurologic: grossly normal - PSYCHIATRIC Psych/Mental Status: normal mood/affect, oriented x 3 - HEART Score HEART Score: History: Slightly Suspicious Progress - PLAN OF CARE/RESULTS Progress/Plan/Lab Results: Vital Signs - 8 hr 10/11/18 18:08 10/11/18 19:51 10/11/18 20:17 Pulse Rate 72 80 91 H Respiratory Rate 20 18 17 Blood Pressure 101/46 125/64 O2 Sat by Pulse Oximetry 97 Laboratory Results - last 24 hr 10/11/18 10/11/18 10/11/18 18:15 18:15 18:15 WBC 12.86 H RBC 4.22 L Hgb 13.1 L Hct 42.4 MCV 100.5 H MCH 31.0 MCHC 30.9 L RDW Std Deviation 14.0 Plt Count 176 MPV 11.8 H Immature Gran % (Auto) 0.2 Neut % (Auto) 84.1 H Lymph % (Auto) 5.9 L Pepin % (Auto) 8.1 Eos % (Auto) 1.6 Baso % (Auto) 0.1 Immature Gran # (Auto) 0.02 Neut # (Auto) 10.83 H Lymph # (Auto) 0.76 L Pepin # (Auto) 1.04 H Eos # (Auto) 0.20 Baso # (Auto) 0.01 PT INR PTT (Actin FS) Specimen Type ARTERIAL Sample Site R BRACHIAL pH 7.00 L* pCO2 108 H* pO2 100 HCO3 19.0 L Base Excess -7.4 L Oxyhemoglobin 90.0 L ABG O2 Sat (Calculated) 17.6 ABG O2 Saturation 98.6 ABG Carboxyhemoglobin 7.20 H* ABG Methemoglobin 1.5 Alexander Test NO A-a O2 Difference 478.0 Total Hemoglobin 13.8 Lactate 0.60 Liter Flow 15.0 Blood Gas Modality NRB FiO2 % 100.0 Sodium Potassium Chloride Carbon Dioxide Anion Gap BUN Creatinine Estimated GFR/1.73 m2 BUN/Creatinine Ratio Glucose Calculated Osmolality Calcium Total Bilirubin AST ALT Alkaline Phosphatase Creatine Kinase 1165 H Creatine Kinase Index 0.7 CK-MB (CK-2) 8.34 H Troponin T Total Protein Albumin Globulin Albumin/Globulin Ratio Urine Source Urine Color Urine Clarity Urine pH Ur Specific [place] Urine Protein Urine Ketones Urine Blood Urine Nitrite Urine Bilirubin Urine Urobilinogen Urine Microscopic RBC Urine WBC Urine Microscopic WBC Ur Epithelial Cells Urine Bacteria Urine Glucose Urine Opiates Screen Ur Oxycodone Screen Urine Methadone Screen U Propoxyphene Qual Ur Barbituates Screen Ur Tricyclics Screen Ur Phencyclidine Scrn Ur Amphetamines Screen U Methamphetamines Scrn U Benzodiazepines Scrn Urine Cocaine Screen U Cannabinoids Screen 10/11/18 10/11/18 10/11/18 18:15 18:15 18:15 WBC RBC Hgb Hct MCV MCH MCHC RDW Std Deviation Plt Count MPV Immature Gran % (Auto) Neut % (Auto) Lymph % (Auto) Pepin % (Auto) Eos % (Auto) Baso % (Auto) Immature Gran # (Auto) Neut # (Auto) Lymph # (Auto) Pepin # (Auto) Eos # (Auto) Baso # (Auto) PT 13.0 INR 0.94 PTT (Actin FS) 28.8 Specimen Type Sample Site pH pCO2 pO2 HCO3 Base Excess Oxyhemoglobin ABG O2 Sat (Calculated) ABG O2 Saturation ABG Carboxyhemoglobin ABG Methemoglobin Alexander Test A-a O2 Difference Total Hemoglobin Lactate Liter Flow Blood Gas Modality FiO2 % Sodium 138 Potassium 7.2 H* Chloride 99 Carbon Dioxide 24 L Anion Gap 15 BUN 60 H Creatinine 6.2 H Estimated GFR/1.73 m2 9 BUN/Creatinine Ratio 10 Glucose 119 H Calculated Osmolality 294 Calcium 8.1 L Total Bilirubin 0.30 AST 26 ALT 24 Alkaline Phosphatase 106 Creatine Kinase Creatine Kinase Index CK-MB (CK-2) Troponin T < 0.010 Total Protein 6.7 Albumin 4.5 Globulin 2.0 Albumin/Globulin Ratio 2.0 Urine Source Urine Color Urine Clarity Urine pH Ur Specific [place] Urine Protein Urine Ketones Urine Blood Urine Nitrite Urine Bilirubin Urine Urobilinogen Urine Microscopic RBC Urine WBC Urine Microscopic WBC Ur Epithelial Cells Urine Bacteria Urine Glucose Urine Opiates Screen Ur Oxycodone Screen Urine Methadone Screen U Propoxyphene Qual Ur Barbituates Screen Ur Tricyclics Screen Ur Phencyclidine Scrn Ur Amphetamines Screen U Methamphetamines Scrn U Benzodiazepines Scrn Urine Cocaine Screen U Cannabinoids Screen 10/11/18 10/11/18 10/11/18 19:10 20:20 20:20 WBC RBC Hgb Hct MCV MCH MCHC RDW Std Deviation Plt Count MPV Immature Gran % (Auto) Neut % (Auto) Lymph % (Auto) Pepin % (Auto) Eos % (Auto) Baso % (Auto) Immature Gran # (Auto) Neut # (Auto) Lymph # (Auto) Pepin # (Auto) Eos # (Auto) Baso # (Auto) PT INR PTT (Actin FS) Specimen Type ARTERIAL Sample Site R BRACHIAL pH 7.11 L* pCO2 71 H* pO2 65 HCO3 18.6 L Base Excess -7.9 L Oxyhemoglobin 89.1 L* ABG O2 Sat (Calculated) 15.4 ABG O2 Saturation 97.6 ABG Carboxyhemoglobin 8.00 H* ABG Methemoglobin 0.7 Alexander Test NO A-a O2 Difference 103.0 Total Hemoglobin 12.3 Lactate 1.00 Liter Flow 4.0 Blood Gas Modality CANNULA FiO2 % 36.0 Sodium Potassium Chloride Carbon Dioxide Anion Gap BUN Creatinine Estimated GFR/1.73 m2 BUN/Creatinine Ratio Glucose Calculated Osmolality Calcium Total Bilirubin AST ALT Alkaline Phosphatase Creatine Kinase Creatine Kinase Index CK-MB (CK-2) Troponin T Total Protein Albumin Globulin Albumin/Globulin Ratio Urine Source CLEAN CATCH Urine Color YELLOW Urine Clarity CLEAR Urine pH 5.0 Ur Specific [place] 1.020 Urine Protein 1+(30 mg/dL) A Urine Ketones TRACE Urine Blood 1+ A Urine Nitrite NEGATIVE Urine Bilirubin 1+ A Urine Urobilinogen NORMAL Urine Microscopic RBC <10 Urine WBC 1+ A Urine Microscopic WBC <10 Ur Epithelial Cells <10 Urine Bacteria NEGATIVE Urine Glucose NEGATIVE Urine Opiates Screen PRESUMPTIVE POSITIVE A Ur Oxycodone Screen NONE DETECTED Urine Methadone Screen NONE DETECTED U Propoxyphene Qual NONE DETECTED Ur Barbituates Screen NONE DETECTED Ur Tricyclics Screen PRESUMPTIVE POSITIVE A Ur Phencyclidine Scrn NONE DETECTED Ur Amphetamines Screen NONE DETECTED U Methamphetamines Scrn PRESUMPTIVE POSITIVE A U Benzodiazepines Scrn PRESUMPTIVE POSITIVE A Urine Cocaine Screen NONE DETECTED U Cannabinoids Screen NONE DETECTED Orders Category Date Time Status Admit - [facility] Routine AdmDCTranf 10/11/18 20:27 Active FSBS [Finger Stick Blood Sugar (ED)] DIRECTED Care 10/11/18 18:13 Active Neurological Check Q1h Care 10/11/18 20:27 Active Saline Loc DIRECTED Care 10/11/18 20:27 Active Vital Signs Order ORDERED Care 10/11/18 20:27 Active Z-Document. for Tele Applied ORDERED Care 10/11/18 20:29 Active CHEST-1 VIEW [RAD] Stat Exams 10/11/18 18:[address] HEAD W/O CONTRAST [CT] Stat Exams 10/11/18 18:17 Completed ABG [RESP] Routine Lab 10/11/18 18:15 Completed ABG [RESP] Routine Lab 10/11/18 19:10 Completed ABG [RESP] Routine Lab 10/11/18 20:32 Ordered BMP [BASIC METABOLIC PANEL] [CHEM] Stat Lab 10/11/18 21:18 Completed CBC WITH ELECTRONIC DIFF [HEME] Stat Lab 10/11/18 18:15 Completed CBC WITH ELECTRONIC DIFF [HEME] Stat Lab 10/11/18 21:18 Completed CK PROFILE [SP CHEM] Stat Lab 10/11/18 18:15 Completed COMPREHENSIVE METABOLIC PANEL [CHEM] Stat Lab 10/11/18 18:15 Completed PROTIME WITH INR [COAG] Stat Lab 10/11/18 18:15 Completed PTT [COAG] Stat Lab 10/11/18 18:15 Completed TROPONIN T Stat Lab 10/11/18 18:15 Completed UA NIMS W/REFLEX CULT PL [URINALYSIS] Stat Lab 10/11/18 20:20 [address] DRUG SCREEN [address] Stat Lab 10/11/18 20:20 Completed 0.9% Sodium Chloride Inj [Ns] 1,000 ml Med 10/11/18 18:38 Discontinued IV 999 mls/hr Albuterol 2.5MG/Ipratrop 0.5MG [Duoneb (A & A)] Med 10/11/18 18:07 Discontinued 3 ml INH NOW ONE Albuterol 2.5MG/Ipratrop 0.5MG [Duoneb (A & A)] Med 10/11/18 23:30 Active 3 ml INH RTQ4H.WA Dextrose 50% Syringe [D50w Syringe] Med 10/11/18 19:41 Discontinued 50 ml IV NOW ONE Insulin Human Regular ([place] [Humulin R ([place])] Med 10/11/18 19:57 Discontinued 10 units .ROUTE .STK-MED ONE Insulin Human Regular [Humulin R] Med 10/11/18 19:41 Discontinued 10 unit IV NOW ONE Naloxone [Narcan] Med 10/11/18 18:10 Discontinued 0.4 mg IV NOW ONE Naloxone [Narcan] Med 10/11/18 20:31 Discontinued 0.4 mg IV NOW ONE Naloxone [Narcan] Med 10/11/18 19:57 Discontinued 2 mg IV NOW ONE Ondansetron [Zofran] Med 10/11/18 18:10 Discontinued 4 mg IV NOW ONE Sodium Bicarbonate 8.4% Med 10/11/18 19:41 Discontinued 50 meq IV PUSH NOW ONE Sodium Polystyrene [Kayexalate] Med 10/11/18 02:30 Discontinued 30 gm PO NOW ONE Sodium Polystyrene [Kayexalate] Med 10/11/18 20:29 Discontinued 30 gm PO NOW ONE Aerosol Treatments Routine Oth 10/11/18 18:07 Active Aerosol Treatments Routine Oth 10/11/18 20:32 Active Aerosol Treatments Stat Oth 10/11/18 18:07 Active Aerosol Treatments Stat Oth 10/11/18 20:32 Active Telemetry [OM.EQ] Routine Oth 10/11/18 20:27 Active EKG [EKG] Stat Ther 10/11/18 18:08 Ordered Transfer/Admit Order [TRANSFER] Routine Transfer 10/11/18 20:30 Ordered 1903: CRITICAL K+- MD RECOMMENDS RECHECKING ABG IN 30 MIN SINCE PATIENT HAD APPROPRIATE RESPONSE TO NARCAN 1935: D/W MD- PT REPEAT ABG NOT MUCH IMPROVED, BIPAP & BICARB ORDERED K + TREATED WITH INSULIN, D50 2044 DISCUSSED PATIENTS SERIOUS CONDITION WITH AND DAUGHTER AT BEDSIDE. DISCUSSED THE POTENTIAL NEED TO INTUBATE THE PATIENT AND PROVIDE FURTHER INVASIVE SUPPORT MEASURES. IS UNSURE IF FAMILY WOULD WANT THIS AND THEY WILL DISCUSS. 2255: family request transfer to [facility]: no beds, family request [facility]: no beds, family request [facility]: no beds, [facility]: Result Diagrams: 10/11/18 21:18 10/11/18 21:18 - REASSESSMENT Reassessment #1 Time Reassessed: 22:10 Status: unchanged (patient discussed with VALERI Whitman. Patient with no improvement in mental status or hypercarbia. Elective intubation for airway and respiratory protection. See procedure note.) - EKG 1 Time of EKG reading by physician:: 18:39 EKG Read and Signed by:: Jayson Martinez EKG Interpretation (*Must complete 3 of following elements*): Abnormal Rate: 77 Rhythm: NSR WITH SINUS ARRYTHMIA AND 1ST DEGREE AV BLOCK [place]: normal QRS: normal OK Interval: normal ST Wave: normal - XRAY 1 XRAY Study: Chest Impression: See EMR Report (INDICATION: SOB COMPARISON: 05/28/2018 FINDINGS: Lung volumes are much lower, critically low. There is nonspecific central atelectasis or crowding. Heart size is probably top normal. IMPRESSION: Critically low lung volumes.) - CT/MRI 1 CT Study: Head Impression: See EMR Report (INDICATION: AMS COMPARISON: 05/28/2018 FINDINGS: There is mild patient motion artifact. No intracranial mass or hemorrhage. The ventricles and sulci appear normal. There is some mild deep cerebral white matter hypodensity compatible with chronic microvascular disease. The skull is intact. The sinuses, mastoids, and middle ears are clear. IMPRESSION: No acute process. This exam was performed using automated exposure control, adjustment of mA or kV according to patient size, and/or use of iterative reconstruction technique) - CONSULTS/PCP/HOSPITALIST Notification #1 *Consult/PCP/Hospitalist*: DR LONDON AT [facility] ACCEPTS PT TO MICU SEND VIA GROUND TRANSP[facility] Time Discussed: 23:52 Consult Disposition: Admit Procedures - INTUBATION Time of Intubation: 22:11 Airway Evaluation: Large tongue Mallampati Class: 3 Intubation Method: orotracheal Equipment: Glidescope Tube Size (cm): 8.0 Pretreated with 100% Oxygen?: Yes Breath Sounds after Intubation: equal ETT Primary Tube Confirmation: Direct Visualization, Chest Rise and Fall Intubation Complications: no complications Vent Settings: Initial ventilator orders written Departure - Departure Date of Disposition Decision: 10/11/18 Time of Disposition Decision: 23:50 DIAGNOSIS: Acute respiratory failure with hypoxemia, ARF (acute renal failure), Acute respiratory acidosis, Hyperkalemia Disposition: [facility] 02 Certified Medical Emergency: Emergent Condition: Serious - Critical Care Note This patient required my direct & personal management of CC.: Yes Total Time (mins): 131 Critical Care Statement: This patient required my direct personal management to treat or rule out processes, the absence of which, could potentiallly result in sudden, clinically significant life or limb threatening deterioration. Attestation - Physician/ JOHNNY Attestation Patient care was provided by Advanced Practice Provider:: Yes Advanced Practice Provider:: Antonette Lucas Advanced Practice Provider documentation review:: The Mid-level provider documentation, treatment plan and medical decision making was reviewed by the physician who agrees with all treatment and medical decision making by the MLP. The physician spent face to face time with patient:: Yes Advanced Practice Provider documentation review:: Supervising physician onsite and consulted in the evaluation and care of this patient. The physician did have a face to face encounter with the patient.
[2018-10-11 18:28] LABS: BE -7.4 mmoll (-3.0-3.0); BLOOD TYPE ARTERIAL; METHB 1.5 % (0.0-1.5); O2(CT) 17.6 mL/dL (15.0-23.0); PO2(98.6) 100 mmHg (60-100); SAMPLE BLOOD; SAO2 98.6 % (95.0-100.0); THB 13.8 g/dL (11.5-17.4)
[2018-10-11 18:30] LABS: BASO# 0.01 X1000 (0.0-0.2); BASO% 0.1 % (0.0-0.8); EOS% 1.6 % (0.0-10.0); HEMATOCRIT 42.4 % (42.0-52.0); HEMOGLOBIN 13.1 g/dL (14.0-18.0); IMM GRAN# 0.02 X1000 (0.0-0.04); IMM GRAN% 0.2 % (0.0-0.5); LYMPH# 0.76 X1000 (1.2-3.4); LYMPH% 5.9 % (20.5-51.1); MCHC 30.9 g/dL (33-37); MCV 100.5 FL (81-99); MONO# 1.04 X1000 (0.11-0.59); MONO% 8.1 % (1.7-9.3); MPV 11.8 FL (7.4-10.4); NEUT# 10.83 X1000 (1.4-6.5); NEUT% 84.1 % (42.2-75.2); PLT 176 X1000 (130-400); RBC 4.22 XMIL (4.7-6.1); WBC 12.86 X1000 (4.8-10.8)
[2018-10-11 18:36] LABS: PCO2(98.6) 108 mmHg (35-45)
[2018-10-11] MEDS ORDERED: NS 1,000 ML IV ONE ×3 (18:38→22:24)
[2018-10-11 18:39] LABS: ALLEN TEST NO; MODALITY NRB
[2018-10-11 18:46] LABS: INR 0.94
[2018-10-11 18:47] LABS: PTT 28.8 Seconds (22.3-41.8)
[2018-10-11 18:55] LABS: ALBUMIN 4.5 g/dL (3.5-5.0); CALCIUM 8.1 mg/dL (8.8-10.2); CREATININE 6.2 mg/dL (0.7-1.2); TOTAL BILIRUBIN 0.3 mg/dL (0.20-1.00); TOTAL PROTEIN 6.7 g/dL (6.3-8.3)
[2018-10-11 19:04] LABS: POTASSIUM 7.2 mmol/L (3.5-5.1)
[2018-10-11 19:18] LABS: CK INDEX 0.7 (0.0-2.5); CK-MB 8.34 ng/mL (0.0-5.0)
[2018-10-11 19:27] LABS: BLOOD TYPE ARTERIAL; SAMPLE BLOOD
[2018-10-11] MEDS ORDERED: D50W SYRINGE IV ONE (19:41)
[2018-10-11] MEDS ORDERED: SODIUM BICARBONATE 8.4% IV PUSH ONE (19:41)
[2018-10-11] MEDS ORDERED: HUMULIN R IV ONE (19:41)
[2018-10-11 19:42] LABS: BE -7.9 mmoll (-3.0-3.0); HCO3-(ACT) 18.6 mmoll (20.0-26.0); METHB 0.7 % (0.0-1.5); O2(CT) 15.4 mL/dL (15.0-23.0); PO2(98.6) 65 mmHg (60-100); SAO2 97.6 % (95.0-100.0); THB 12.3 g/dL (11.5-17.4)
[2018-10-11 19:45] LABS: O2HB 89.1 % (95.0-99.0); PCO2(98.6) 71 mmHg (35-45); pH(98.6) 7.11 (7.35-7.45)
[2018-10-11 19:46] LABS: ALLEN TEST NO; MODALITY CANNULA
[2018-10-11] MEDS ORDERED: HUMULIN R (PARKWAY) ONE (19:57)
--- NOTE | 2018-10-11 20:05 | Diag Imaging Result Doc PS360 ---
CT HEAD W/O CONTRAST - 10/11/2018 INDICATION: AMS COMPARISON: 05/28/2018 FINDINGS: There is mild patient motion artifact. No intracranial mass or hemorrhage. The ventricles and sulci appear normal. There is some mild deep cerebral white matter hypodensity compatible with chronic microvascular disease. The skull is intact. The sinuses, mastoids, and middle ears are clear. IMPRESSION: No acute process. This exam was performed using automated exposure control, adjustment of mA or kV according to patient size, and/or use of iterative reconstruction technique Electronically signed by Lucio Bejarano 10/11/2018 8:03 PM
--- NOTE | 2018-10-11 20:09 | Diag Imaging Result Doc PS360 ---
CHEST-1 VIEW - 10/11/2018 INDICATION: SOB COMPARISON: 05/28/2018 FINDINGS: Lung volumes are much lower, critically low. There is nonspecific central atelectasis or crowding. Heart size is probably top normal. IMPRESSION: Critically low lung volumes. Electronically signed by Lucio Bejarano 10/11/2018 8:06 PM
[2018-10-11] MEDS ORDERED: KAYEXALATE PO ONE (20:29)
[2018-10-11 20:40] LABS: BILIRUBIN URINE 1+ (NEGATIVE); BLOOD URINE 1+ (NEGATIVE); GLUCOSE URINE NEGATIVE (NEGATIVE); KETONE URINE TRACE mg/dL (NEGATIVE); LEUKOCYTES URINE 1+ (NEGATIVE); NITRITE URINE NEGATIVE (NEGATIVE); PROTEIN URINE 1+(30 mg/dL) mg/dL (NEGATIVE); UROBILINOGEN URINE NORMAL
[2018-10-11 20:41] LABS: CLARITY CLEAR (CLEAR); COLOR YELLOW
[2018-10-11 20:46] LABS: URINE BACTERIA NEGATIVE /HFP; URINE EPITHELIAL CELLS <10 /HPF (<10); URINE RBC <10 /HPF (<10); URINE SOURCE CLEAN CATCH; URINE WBC <10 /HPF (<10)
[2018-10-11 20:52] LABS: UR AMPHETAMINES QUAL NONE DETECTED (NONE DETECT); UR BARBITUATES QUAL NONE DETECTED (NONE DETECT); UR BENZODIAZEPIN QUAL PRESUMPTIVE POSITIVE (NONE DETECT); UR COCAINE QUAL NONE DETECTED (NONE DETECT); UR METHADONE QUAL NONE DETECTED (NONE DETECT); UR METHAMPHETAMINE QUAL PRESUMPTIVE POSITIVE (NONE DETECT); UR OPIATES QUAL PRESUMPTIVE POSITIVE (NONE DETECT)
[2018-10-11 20:53] LABS: UR CANNABINOIDS QUAL NONE DETECTED (NONE DETECT); UR OXYCODONE QUAL NONE DETECTED (NONE DETECT); UR PCP QUAL NONE DETECTED (NONE DETECT); UR PROPOXYPHENE QUAL NONE DETECTED (NONE DETECT); UR TCA QUAL PRESUMPTIVE POSITIVE (NONE DETECT)
[2018-10-11 21:25] LABS: BE -5.6 mmoll (-3.0-3.0); BLOOD TYPE ARTERIAL; HCO3-(ACT) 20.4 mmoll (20.0-26.0); METHB 1.4 % (0.0-1.5); O2HB 91.4 % (95.0-99.0); PO2(98.6) 87 mmHg (60-100); SAMPLE BLOOD; SAO2 98.1 % (95.0-100.0); THB 12.4 g/dL (11.5-17.4)
[2018-10-11 21:28] LABS: PCO2(98.6) 70 mmHg (35-45)
[2018-10-11 21:29] LABS: EOS# 0.07 X1000 (0.0-0.7); EOS% 0.7 % (0.0-10.0); HEMATOCRIT 39.2 % (42.0-52.0); HEMOGLOBIN 12.1 g/dL (14.0-18.0); IMM GRAN# 0.02 X1000 (0.0-0.04); IMM GRAN% 0.2 % (0.0-0.5); LYMPH# 0.64 X1000 (1.2-3.4); LYMPH% 6.6 % (20.5-51.1); MCH 31.2 PG (27-31); MCHC 30.9 g/dL (33-37); MONO# 0.86 X1000 (0.11-0.59); MONO% 8.8 % (1.7-9.3); MPV 11.9 FL (7.4-10.4); NEUT# 8.16 X1000 (1.4-6.5); NEUT% 83.7 % (42.2-75.2); PLT 136 X1000 (130-400); RBC 3.88 XMIL (4.7-6.1); RDW 13.9 % (11.5-14.5); WBC 9.75 X1000 (4.8-10.8)
[2018-10-11 21:29] LABS: pH(98.6) 7.15 (7.35-7.45)
[2018-10-11 21:30] LABS: ALLEN TEST YES; MODALITY BI PAP
[2018-10-11] MEDS ORDERED: AMIDATE ONE ×2 (21:35→21:55)
[2018-10-11] MEDS ORDERED: NORCURON ONE (21:35)
[2018-10-11] MEDS ORDERED: STERILE WATER INJ. ONE (21:36)
[2018-10-11] MEDS ORDERED: NS 1,000 ML ONE (21:48)
[2018-10-11 21:56] LABS: CALCIUM 7.6 mg/dL (8.8-10.2); POTASSIUM 5.9 mmol/L (3.5-5.1)
[2018-10-11] MEDS ORDERED: DIPRIVAN 1% ONE (22:05)
[2018-10-11] MEDS ORDERED: DIPRIVAN 1% 1,000 MG/100 ML BOTTLE ONE (22:05)
[2018-10-11] MEDS ORDERED: NORCURON IV ONE (22:11)
[2018-10-11] MEDS ORDERED: AMIDATE IV ONE (22:11)
[2018-10-11] MEDS: DIPRIVAN 1% IV PRN ×4 (22:27→23:57)
[2018-10-11] MEDS ORDERED: NS 1,000 ML IV SCH (22:30)
[2018-10-11] MEDS ORDERED: LEVOPHED 8 MG in D5 1/2 NS 250 ML IV SCH (23:00)
[2018-10-11 23:09] LABS: BE -6.1 mmoll (-3.0-3.0); BLOOD TYPE ARTERIAL; METHB 1.3 % (0.0-1.5); O2HB 92.1 % (95.0-99.0); PO2(98.6) 84 mmHg (60-100); SAMPLE BLOOD; SAO2 98.2 % (95.0-100.0); SRATE 12 BPM; THB 12.3 g/dL (11.5-17.4); TVOL 500 mL
[2018-10-11 23:12] LABS: pH(98.6) 7.17 (7.35-7.45)
[2018-10-11 23:13] LABS: ALLEN TEST YES; MODALITY VENTILATOR; PCO2(98.6) 64 mmHg (35-45)
[2018-10-11] MEDS ORDERED: DUONEB (A & A) INH SCH (23:30)
[2018-10-12] MEDS ORDERED: VANCOMYCIN 1 GM/NS 1 GM/250 ML IVPB IV ONE (00:11)
[2018-10-12] MEDS: DIPRIVAN 1% IV PRN ×2 (00:42→00:59)
[2018-10-12 01:22] VITALS: BP 107/60
--- NOTE | 2018-10-12 06:40 | Diag Imaging Result Doc PS360 ---
CHEST-PORTABLE - 10/11/2018 10:28 PM INDICATION: INTUBATION COMPARISON: 7:45 PM FINDINGS: There is an endotracheal tube in good position at T4-T5. Lung bones are low but improved from prior. No definite infiltrates. IMPRESSION: No complication. Electronically signed by Lucio Bejarano 10/12/2018 6:37 AM
--- NOTE | 2018-10-12 11:34 | EKG Report ---
Test Performed on : 10/11/2018 6:38:09 PM Test Reason : ER Blood Pressure : / mmHG Vent. Rate : 077 BPM Atrial Rate : 077 BPM P-R Int : 226 ms QRS Dur : 094 ms QT Int : 380 ms P-R-T Axes : 014 072 042 degrees QTc Int : 430 ms Sinus rhythm. with marked sinus arrhythmia. with 1st degree AV block. Low voltage QRS Borderline ECG When compared with ECG of 13-JAN-2018 07:53, IA interval has increased Unconfirmed Result
--- NOTE | 2018-10-15 10:07 | HISTORY AND PHYSICAL ---
HISTORY OF PRESENT ILLNESS: This is a 67-year-old, male who presented to the emergency department for hypoxia and altered mental status. I was called by the nurse practitioner, Antonette Lucas, for admission for this patient for apparently acute respiratory failure with severe hyperkalemia and severe renal failure. I was informed later on, in the middle of the night, that this patient's respiratory status continued to get worse. He needed to be intubated emergently in the ER. At this point in time, the family requests transfer to a different hospital. There were no beds in [facility] or [facility]. Finally, the patient was sent to [facility]. As we mentioned before, I was called for admission but I have not had the opportunity to see this patient because he was not there overnight. cc: Aneesh Mccallum MD
== END 2018-10-12 01:10 | disposition short-term general hospital (02) | DRG 208 ==
LOC: P.ED 18:05 → P.ICU 20:39 → P.EDIPHOLD 22:08
PROVIDERS: ATTEND Internal Medicine
CPT/HCPCS: 31500; 51702; 70450; 71010; 71045; 80048; 80053; 80104; 80301; 80305; 81001; 82550; 82553; 82805; 84484; 85025; 85610; 85730; 87040; 87088; 93005; 94640; 94761; 96365; 96366; 96367; 96375; 96376; 99285; 99291; A9270; G0431; G0434; G0477; J1815; J2310; J2405; J7030

== ENCOUNTER 2019-07-26 15:26 | Inpatient (IN) ==
[2019-07-26] MEDS ORDERED: AMIDATE ONE (15:46)
[2019-07-26] MEDS ORDERED: QUELICIN ONE (15:46)
[2019-07-26] MEDS ORDERED: NORCURON ONE (15:46)
[2019-07-26] MEDS ORDERED: VERSED ONE (15:46)
[2019-07-26] MEDS ORDERED: NS 1,000 ML ONE (15:46)
[2019-07-26] MEDS ORDERED: AMIDATE IV ONE (15:55)
[2019-07-26] MEDS ORDERED: QUELICIN IV ONE (15:56)
[2019-07-26] MEDS ORDERED: NS 1,000 ML IV ONE ×2 (15:58→16:03)
[2019-07-26] MEDS: DIPRIVAN 1% 1,000 MG/100 ML BOTTLE IV SCH ×2 (16:00→19:09)
[2019-07-26 16:15] LABS: ALLEN TEST YES; BE 3.3 mmoll (-3.0-3.0); BLOOD TYPE ARTERIAL; HCO3-(ACT) 27.2 mmoll (20.0-26.0); METHB 1.2 % (0.0-1.5); O2(CT) 18.1 mL/dL (15.0-23.0); PO2(98.6) 128 mmHg (60-100); SAMPLE BLOOD; SAO2 98.3 % (95.0-100.0); THB 14.6 g/dL (11.5-17.4); pH(98.6) 7.21 (7.35-7.45)
[2019-07-26 16:17] LABS: BASO# 0.06 X1000 (0.0-0.2); BASO% 0.7 % (0.0-0.8); EOS# 0.26 X1000 (0.0-0.7); EOS% 2.8 % (0.0-10.0); HEMATOCRIT 47.3 % (42.0-52.0); HEMOGLOBIN 14.2 g/dL (14.0-18.0); IMM GRAN# 0.05 X1000 (0.0-0.04); IMM GRAN% 0.5 % (0.0-0.5); LYMPH# 2.17 X1000 (1.2-3.4); LYMPH% 23.6 % (20.5-51.1); MCH 31.1 PG (27-31); MCV 103.5 FL (81-99); MONO# 0.78 X1000 (0.11-0.59); MONO% 8.5 % (1.7-9.3); NEUT# 5.88 X1000 (1.4-6.5); NEUT% 63.9 % (42.2-75.2); PLT 199 X1000 (130-400); RBC 4.57 XMIL (4.7-6.1); RDW 14.5 % (11.5-14.5)
[2019-07-26 16:22] LABS: PCO2(98.6) 86 mmHg (35-45)
[2019-07-26 16:22] LABS: URINE SOURCE CATH
[2019-07-26 16:23] LABS: O2HB 87.1 % (95.0-99.0)
[2019-07-26 16:24] LABS: MODALITY RESUSC BAG
--- NOTE | 2019-07-26 16:26 | Diag Imaging Result Doc PS360 ---
EXAM: CHEST-PORTABLE 07/26/2019 HISTORY: tube placement TECHNIQUE: AP portable at 1613 COMMENT: There is an endotracheal tube with its tip slightly below the thoracic inlet and an NG tube which passes below the diaphragm into the stomach. There are no previous studies. There our old fractures of the sixth and seventh ribs on the right. There is some questionable atelectasis or fibrosis in the right costophrenic sulcus. IMPRESSION: Questionable atelectasis in the lateral right lower lobe. Electronically signed by Dom Knox 07/26/2019 4:24 PM
[2019-07-26 16:30] LABS: INR 0.95; PROTIME 12.8 Seconds (11.0-16.0); PTT 27.9 Seconds (22.3-41.8)
[2019-07-26 16:31] LABS: BILIRUBIN URINE NEGATIVE (NEGATIVE); BLOOD URINE TRACE (NEGATIVE); COLOR YELLOW; GLUCOSE URINE NEGATIVE (NEGATIVE); KETONE URINE NEGATIVE (NEGATIVE); LEUKOCYTES URINE NEGATIVE (NEGATIVE); NITRITE URINE NEGATIVE (NEGATIVE); PH URINE 5.5; PROTEIN URINE 100 mg/dL (NEGATIVE); TURBIDITY URINE CLEAR (CLEAR); UROBILINOGEN URINE NORMAL (NORMAL)
[2019-07-26 16:32] LABS: UR EPITHELIAL CELLS <10 /HPF (<10); URINE BACTERIA NEGATIVE /HPF; URINE RBC <10 /HPF (<10); URINE WBC <10 /HPF (<10)
[2019-07-26 16:35] LABS: ALB/GLOB RATIO 1.6; ALBUMIN 4.1 g/dL (3.5-5.0); CALCIUM 9.2 mg/dL (8.8-10.2); CREATININE 1.5 mg/dL (0.7-1.2); POTASSIUM 5.4 mmol/L (3.5-5.1); TOTAL BILIRUBIN 0.28 mg/dL (0.20-1.00); TOTAL PROTEIN 6.7 g/dL (6.3-8.3)
[2019-07-26 16:42] LABS: UR AMPHETAMINES QUAL NONE DETECTED (NONE DETECT); UR BARBITUATES QUAL NONE DETECTED (NONE DETECT); UR BENZODIAZEPIN QUAL NONE DETECTED (NONE DETECT); UR CANNABINOIDS QUAL PRESUMPTIVE POSITIVE (NONE DETECT); UR COCAINE QUAL NONE DETECTED (NONE DETECT); UR METHADONE QUAL NONE DETECTED (NONE DETECT); UR OPIATES QUAL PRESUMPTIVE POSITIVE (NONE DETECT); UR OXYCODONE QUAL NONE DETECTED (NONE DETECT); UR PCP QUAL NONE DETECTED (NONE DETECT)
[2019-07-26 16:54] LABS: FREE T4 0.95 ng/dL (0.93-1.70); TSH 2.2 uIUmL (0.27-4.20)
[2019-07-26 17:13] LABS: CK INDEX 1.4 (0.0-2.5); CK-MB 3.92 ng/mL (0.0-5.0)
--- NOTE | 2019-07-26 18:25 | PROVIDER DOCUMENTATION ---
This chart was entered by Magui Cunha Scribe, acting as scribe for Charline Alford MD. [id number] Abuse/Overdose - General Chief Complaint: Overdose Stated Complaint: Overdose Time Seen by Provider: 07/26/19 15:26 Source: EMS Unable to obtain history due to:: altered Allergies/Adverse Reactions: Allergies Allergy/AdvReac Type Severity Reaction Status Date / Time morphine Allergy Mild ITCHING Verified 05/28/18 14:19 Penicillins Allergy RASH Verified 05/28/18 14:19 Home Medications: Home Medication List Medication Instructions Recorded Confirmed Last Taken Type Albuterol Sulfate [Ventolin Hfa] 2 puff INH Q4-6H PRN PRN 01/12/18 05/28/18 Unknown History Lisinopril 1 tab PO DAILY 01/12/18 05/28/18 01/11/18 History Gabapentin [Neurontin] 300 mg PO DAILY #15 cap 01/15/18 05/28/18 Unknown Rx Omeprazole 1 cap PO DAILY #15 capsule. 01/15/18 05/28/18 Unknown Rx Buspirone HCl 10 mg PO DAILY 05/28/18 05/28/18 Unknown History Fluticasone/Salmeterol [Advair 1 puff INH BID 05/28/18 05/28/18 Unknown History 500-50 Diskus] Furosemide 1 tab PO DAILY 05/28/18 05/28/18 Unknown History Potassium Chloride 10 meq PO DAILY 05/28/18 05/28/18 Unknown History Quetiapine Fumarate 50 mg PO QHS 05/28/18 05/28/18 Unknown History Temazepam 30 mg PO QHS 05/28/18 05/28/18 Unknown History Tizanidine HCl 4 mg PO BID 05/28/18 05/28/18 Unknown History Bisoprolol/Hydrochlorothiazide 1 tab PO DAILY 05/31/18 05/31/18 Unknown History [Bisoprolol-Hctz 2.5-6.25 mg Tb] Levofloxacin [Levaquin] 750 mg PO DAILY #7 tab 05/31/18 Unknown Rx Methylprednisolone [Medrol Dosepak] 4 mg PO DIRECTED #1 pkg 05/31/18 Unknown Rx - History of Present Illness-Drug/Alcohol Nature of Presenting Problem: pt is a male of unk age presenting to er w/ems w/cc OD on unk amount and kind of opiates. pt was found by family unresponsive. pt has on his person a small blue pill bottle filled w/different rx. pt had narcan enroute, was 42% on RA when found. epistaxis from being trumpeted by ems. pt has snoring respirations and is tachycardic. pt is disoriented, combative and lethargic but does respond to painful stimuli. This episode of drinking or use began:: just prior to arrival Severity: reports: severe Situational problems related to:: reports: N/A Psychiatric Complaints: reports: denies symptoms Associated Symptoms: reports: denies symptoms - Substance Abuse Substance Use: reports: opiates - Overdose Suicide Risk Assessment: male sex, drug or ETOH abuse Review of Systems - Adult - REVIEW OF SYSTEMS - ADULT Constitutional: reports: see HPI, other (lethargic, unresponsive). denies: fever, fatique, night sweats Eyes: reports: no symptoms reported Ears, Nose, Mouth & Throat: reports: see HPI, epistaxis. denies: ear discharge, ear pain, hearing loss Cardiovascular: reports: no symptoms reported Respiratory: reports: see HPI, shortness of breath (42% RA, snoring respirations). denies: chronic cough, cough, pleurisy Gastrointestinal: reports: no symptoms reported Genitourinary: reports: no symptoms reported Musculoskeletal: reports: no symptoms reported Integumentary: reports: no symptoms reported Neurological: reports: no symptoms reported Psychiatric: reports: see HPI, other (OD). denies: insomnia Endocrine: reports: no symptoms reported Hematologic/Lymphatic: reports: no symptoms reported Allergic/Immunologic: reports: no symptoms reported All Other Systems: Reviewed and Negative Past History - Adult - PAST MEDICAL HISTORY-ADULT Review of Records: reports: Nursing Assessment Review, Medications Reviewed, Social history reviewed & non-contributory. Major Childhood Illnesses: reports: denies history Cardiovascular: reports: denies history Respiratory: reports: denies history Gastrointestinal: reports: denies history Obstetrical/Gynecological: reports: denies history Genitourinary: reports: denies history Musculoskeletal: reports: denies history Neurological: reports: denies history Endocrine/Immune: reports: denies history Other Conditions: reports: denies history - IMMUNIZATION STATUS Childhood Immunizations: See Nurse Assessment Flu Vaccine: See Nurse Assessment - FAMILY HISTORY Family History: reviewed, not pertinent Physical Exam-General - PHYSICAL EXAM-ADULT Initial Vital Signs Reviewed: Yes - CONSTITUTIONAL General Appearance: severe distress, lethargic, combative. negative: appears well, alert, no apparent distress - EYES Eyes: negative: anisocoria, conjuctival exudate - HEAD, EARS, NOSE, MOUTH & THROAT HENMT: normocephalic/atraumatic, moist mucous membranes, other (epistaxis bilat nostrils w/blood all over rt side of face). negative: TM abnormal, TM obscurred by cerumen, frontal tenderness, maxillary tenderness - NECK Neck: non-tender, full range of motion, supple, normal inspection - RESPIRATORY Respiratory: chest non-tender, lungs clear, no pleuratic chest pain, no accessory muscle use, decreased breath sounds (snoring resp.), decreased rate, other (snoring respirations, pt o2 sat inmproved on arrival, was being bagged by respiratory.). negative: normal breath sounds, stridor, wheezing, increased rate - CARDIOVASCULAR Cardiovascular: normal peripheral pulses, tachycardia. negative: regular rate, rhythm - GASTROINTESTINAL (ABDOMEN) Abdominal Exam: normal bowel sounds, non tender, soft - LYMPHATIC Lymphatic: negative: axilla node tender - MUSCULOSKELETAL Back Exam: normal inspection Extremity: normal range of motion, non-tender, normal inspection - SKIN Integumentary: normal color, normal turgor, warm/dry - NEUROLOGIC Neurologic: other (unable to fully assess due to current condition) - PSYCHIATRIC Psych/Mental Status: disoriented x 3, anxious, disheveled. negative: normal mo od/affect, normal thought content, normal thought process, oriented x 3 Progress - PLAN OF CARE/RESULTS Progress/Plan/Lab Results: Orders Category Date Time Status Admit - [facility] Routine AdmDCTranf 07/26/19 18:38 Active Apply Mechanical Device [QM] ORDERED Care 07/26/19 18:38 Active Cardiac Monitoring NOW Care 07/26/19 16:18 Completed IV Insertion NOW Care 07/26/19 16:18 Completed Intake and Output-Strict ORDERED Care 07/26/19 18:38 Active NEWS Score >or=5:Order NEWS Bundle S.O. NOW Care 07/26/19 16:17 Completed Notify Provider of NEWS Score NOW Care 07/26/19 16:18 Completed Nursing- MD Consult Request ROUTINE Care 07/26/19 18:44 Completed Vital Signs Order ROUTINE Care 07/26/19 18:38 Completed Z-Document. for Tele Applied ORDERED Care 07/26/19 18:41 Active Physician/Provider Consults Routine Cons 07/26/19 18:38 Ordered CHEST-PORTABLE [RAD] DAILY Exams 07/27/19 06:00 Completed CHEST-PORTABLE [RAD] DAILY Exams 07/28/19 06:00 Completed CHEST-PORTABLE [RAD] DAILY Exams 07/29/19 06:00 Completed CHEST-PORTABLE [RAD] Stat Exams 07/26/19 15:58 Completed ABG [RESP] DAILY Lab 07/27/19 04:20 Completed ABG [RESP] DAILY Lab 07/28/19 05:13 Completed ABG [RESP] Routine Lab 07/26/19 15:40 Completed ALCOHOL BLOOD Stat Lab 07/26/19 16:00 Completed BLOOD CULTURE [BLDCUL] Stat Lab 07/26/19 17:02 Results BMP [BASIC METABOLIC PANEL] [CHEM] Stat Lab 07/26/19 18:15 Completed CBC WITH DIFF [HEME] Routine Lab 07/27/19 05:50 Completed CBC WITH ELECTRONIC DIFF [HEME] Stat Lab 07/26/19 16:00 Completed CK PROFILE [SP CHEM] Stat Lab 07/26/19 16:00 Completed COMPREHENSIVE METABOLIC PANEL [CHEM] Routine Lab 07/27/19 05:50 Completed COMPREHENSIVE METABOLIC PANEL [CHEM] Stat Lab 07/26/19 16:00 Completed FERRITIN Routine Lab 07/27/19 05:50 Completed FOLATE Routine Lab 07/27/19 06:50 Completed FREE T4 Stat Lab 07/26/19 16:00 Completed LACTATE, PLASMA [CHEM] Lab 07/26/19 17:02 Completed LACTATE, PLASMA [CHEM] Lab 07/26/19 20:44 Completed LACTATE, PLASMA [CHEM] Lab 07/26/19 23:26 Completed MAGNESIUM [CHEM] Routine Lab 07/27/19 05:50 Completed PROTIME WITH INR [COAG] Stat Lab 07/26/19 16:00 Completed PTT [COAG] Stat Lab 07/26/19 16:00 Completed TROPONIN T HIGH SENSITIVITY Stat Lab 07/26/19 16:00 Completed TSH Stat Lab 07/26/19 16:00 Completed UIBC W TOTAL IRON [CHEM] Routine Lab 07/27/19 05:50 Completed URINALYSIS W/POSS RFLX CULT [URINALYSIS] Stat Lab 07/26/19 16:09 Completed URINE DRUG SCREEN Stat Lab 07/26/19 16:09 Completed VITAMIN B12 Routine Lab 07/27/19 05:50 Completed VITAMIN B12 Stat Lab 07/26/19 16:00 Completed 0.9% Sodium Chloride Inj [Ns] 1,000 ml Med 07/26/19 15:46 Discontinued .ROUTE As directed 0.9% Sodium Chloride Inj [Ns] 1,000 ml Med 07/26/19 18:45 Discontinued IV 100 mls/hr 0.9% Sodium Chloride Inj [Ns] 1,000 ml Med 07/26/19 15:58 Discontinued IV 150 mls/hr 0.9% Sodium Chloride Inj [Ns] 1,000 ml Med 07/26/19 18:50 Discontinued IV 75 mls/hr 0.9% Sodium Chloride Inj [Ns] 1,000 ml Med 07/26/19 16:03 Discontinued IV 999 mls/hr Etomidate [Amidate] Med 07/26/19 15:55 Discontinued 10 mg IV NOW ONE Etomidate [Amidate] Med 07/26/19 15:46 Discontinued 40 mg .ROUTE .STK-MED ONE Meropenem [Merrem] 1 gm Med 07/26/19 19:00 Active 0.9% Sodium Chloride Inj [Ns] 50 ml IV Q12H Midazolam [Versed] Med 07/26/19 15:46 Discontinued 5 mg .ROUTE .STK-MED ONE Pantoprazole [Protonix] Med 07/26/19 19:00 Active 40 mg IV Q12H Piperacillin/Tazobactam [Zosyn] 3.375 gm Med 07/26/19 19:00 Discontinued 0.9% Sodium Chloride Inj [Ns] 50 ml IV Q6H Propofol [Diprivan 1%] Med 07/26/19 16:00 Active 1,000 mg in 100 ml IV As Directed mls/hr Sodium Chloride 0.9% Med 07/26/19 19:00 Active 10 ml INJ DIRECTED Succinylcholine [Quelicin] Med 07/26/19 15:56 Discontinued 100 mg IV NOW ONE Succinylcholine [Quelicin] Med 07/26/19 15:46 Discontinued 200 mg .ROUTE .STK-MED ONE Vecuronium [Norcuron] Med 07/26/19 15:46 Discontinued 10 mg .ROUTE .STK-MED ONE O2 Per Protocol Stat Oth 07/26/19 16:18 Completed Telemetry [OM.EQ] Routine Oth 07/26/19 18:38 Active Ventilator Order Stat Oth 07/26/19 17:26 Completed Transfer/Admit Order [TRANSFER] Routine Transfer 07/26/19 18:52 Completed Result Diagrams: 07/28/19 08:50 07/28/19 06:00 - EKG 1 Time of EKG reading by physician:: 16:21 EKG Read and Signed by:: Charline Alford EKG Interpretation (*Must complete 3 of following elements*): Abnormal Rate: 78 Rhythm: NSR Tiona: normal QRS: other (low voltage QRS) MD Interval: normal ST Wave: normal - XRAY 1 XRAY Study: Chest Impression: See EMR Report ( EXAM: CHEST-PORTABLE 07/26/2019 HISTORY: tube placement TECHNIQUE: AP portable at 1613 COMMENT: There is an endotracheal tube with its tip slightly below the thoracic inlet and an NG tube which passes below the diaphragm into the stomach. There are no previous studies. There our old fractures of the sixth and seventh ribs on the right. There is some questionable atelectasis or fibrosis in the right costophrenic sulcus. IMPRESSION: Questionable atelectasis in the lateral right lower lobe. Electronically signed by Dom Knox 07/26/2019 4:24 PM) Procedures - INTUBATION Airway Evaluation: Large tongue Mallampati Class: 4 Intubation Method: orotracheal Equipment: ETT Tube Size (cm): 8.0 Pretreated with 100% Oxygen?: Yes Breath Sounds after Intubation: equal ETT Primary Tube Confirmation: Capnometry CO2 Change, Direct Visualization, Tube placement verified on XRAY Intubation Complications: no complications Vent Settings: See Respiratory Therapy Notes Departure - Departure Date of Disposition Decision: 07/26/19 Time of Disposition Decision: 18:18 DIAGNOSIS: Overdose Qualifiers: Encounter type: initial encounter Injury intent: undetermined intent Qualified Code(s): T50.904A - Poisoning by unspecified drugs, medicaments and biological substances, undetermined, initial encounter Respiratory failure Qualifiers: Chronicity: unspecified Respiratory failure complication: unspecified whether with hypoxia or hypercapnia Qualified Code(s): J96.90 - Respiratory failure, unspecified, unspecified whether with hypoxia or hypercapnia Disposition: ADMITTED INPATIENT 09 Certified Medical Emergency: Emergent Condition: Good - Critical Care Note This patient required my direct & personal management of CC.: Yes Total Time (mins): 31 Critical Care Statement: This patient required my direct personal management to treat or rule out processes, the absence of which, could potentiallly result in sudden, clinically significant life or limb threatening deterioration. Attestation - Physician/ JOHNNY Attestation Patient care was provided by Advanced Practice Provider:: No The physician spent face to face time with patient:: Yes Advanced Practice Provider documentation review:: Supervising physician onsite and consulted in the evaluation and care of this patient. The physician did have a face to face encounter with the patient. This chart was documented by the indicated scribe, (Magui Cunha Scribe) and accurately reflects the services I performed and decisions made by me, Charline Alford MD, as attested by the provider's signature.
[2019-07-26] MEDS ORDERED: NS 1,000 ML IV SCH ×2 (18:45→18:50)
[2019-07-26] MEDS ORDERED: ZOSYN 3.375 GM in NS 50 ML IV SCH (19:00)
[2019-07-26] MEDS: MERREM 1 GM in NS 50 ML IV SCH (19:00)
--- NOTE | 2019-07-26 19:09 | HISTORY AND PHYSICAL ---
ADDENDUM: The patient was seen and examined by me [id number]. All the laboratory, vital signs and chest x-ray were evaluated. The patient presented due to altered mental status. Apparently this patient was found unresponsive by his family. No family member is at the bedside, and basically all the information was obtained from the ER notes and my physical exam. Apparently he has a small pill bottle filled with different treatments. He received some Narcan during transportation, and apparently his oxygen saturation was really low at 42%. As per the ER doctor he had snoring respiration and he was tachycardic and really lethargic. He has been intubated in the emergency department. I checked his previous visits, and it looks like he has been having multiple visits because of overdose. Urine toxicology showed opiates and cannabinoids, no alcohol. He is acidotic with a really high pCO2 at 86, he has probably some acute kidney injury, but his kidney function has been up and down since 2015 at least. In 2017, though, his creatinine was 6.2 at some point. On my physical exam his pupils are pinpoint. He has multiple bruises on his upper extremities, and he has 3+ lower extremity edema. We are going to consult the Pulmonary Department to take care of the pulmonary function and mechanical ventilation as well. Help is appreciated with this patient. We will put this patient on Protonix twice a day. He will be getting antibiotics for the possibility of aspiration, especially because his right lower lung. We will add Ativan as needed in case of withdrawal symptoms as well. I agree with the rest of the nurse practitioner's assessment and plan. cc: Mark Leonardo MD MTDD
[2019-07-26 19:16] LABS: CALCIUM 8.2 mg/dL (8.8-10.2); CREATININE 1.4 mg/dL (0.7-1.2)
[2019-07-26] MEDS: PROTONIX IV SCH (22:40)
[2019-07-27] MEDS: DIPRIVAN 1% 1,000 MG/100 ML BOTTLE IV SCH ×4 (00:03→12:13)
[2019-07-27 04:56] LABS: ALLEN TEST YES; BE 5.7 mmoll (-3.0-3.0); BLOOD TYPE ARTERIAL; HCO3-(ACT) 29.4 mmoll (20.0-26.0); METHB 1.2 % (0.0-1.5); O2(CT) 19.3 mL/dL (15.0-23.0); O2HB 96.6 % (95.0-99.0); PCO2(98.6) 35 mmHg (35-45); PO2(98.6) 216 mmHg (60-100); SAMPLE BLOOD; SAO2 98.8 % (95.0-100.0); SRATE 20 BPM; THB 13.9 g/dL (11.5-17.4); TVOL 500 mL; pH(98.6) 7.52 (7.35-7.45)
[2019-07-27 04:57] LABS: MODALITY VENTILATOR
[2019-07-27 06:29] LABS: BASO# 0.03 X1000 (0.0-0.2); BASO% 0.3 % (0.0-0.8); EOS# 0.19 X1000 (0.0-0.7); EOS% 2.2 % (0.0-10.0); HEMATOCRIT 41.9 % (42.0-52.0); HEMOGLOBIN 12.8 g/dL (14.0-18.0); IMM GRAN# 0.02 X1000 (0.0-0.04); IMM GRAN% 0.2 % (0.0-0.5); LYMPH# 1.31 X1000 (1.2-3.4); LYMPH% 14.9 % (20.5-51.1); MCH 30.8 PG (27-31); MCHC 30.5 g/dL (33-37); MONO# 0.66 X1000 (0.11-0.59); MONO% 7.5 % (1.7-9.3); MPV 11.6 FL (7.4-10.4); NEUT# 6.56 X1000 (1.4-6.5); NEUT% 74.9 % (42.2-75.2); PLT 153 X1000 (130-400); RBC 4.15 XMIL (4.7-6.1); RDW 14.2 % (11.5-14.5); WBC 8.77 X1000 (4.8-10.8)
[2019-07-27] MEDS: PROTONIX IV SCH ×2 (06:42→18:20)
[2019-07-27] MEDS: MERREM 1 GM in NS 50 ML IV SCH ×2 (06:43→18:20)
[2019-07-27 07:06] LABS: AGAP 11; ALB/GLOB RATIO 1.2; ALBUMIN 3.1 g/dL (3.5-5.0); ALKALINE PHOSPHATASE 96 U/L (32-122); BUN 22 mg/dL (8-22); CALCIUM 8.4 mg/dL (8.8-10.2); CHLORIDE 104 mmol/L (98-107); COSMO 286; CREATININE 1.1 mg/dL (0.7-1.2); ESTIMATED GFR > 60; GLUCOSE 91 mg/dL (70-104); GOT 18 U/L (10-34); GPT 19 U/L (10-44); IRON SATURATION 18 %; MAGNESIUM 2.3 mg/dL (1.5-2.7); POTASSIUM 4.4 mmol/L (3.5-5.1); SODIUM 142 mmol/L (136-145); TCO2 27 mmol/L (25-35); TIBC 285 ug/dL; TOTAL BILIRUBIN 0.43 mg/dL (0.20-1.00); TOTAL IRON 50 ug/dL (53-167); TOTAL PROTEIN 5.7 g/dL (6.3-8.3); UNBOUND IRON 235 ug/dL (112-346)
--- NOTE | 2019-07-27 07:44 | Diag Imaging Result Doc PS360 ---
EXAM: CHEST-PORTABLE HISTORY: intubated TECHNIQUE: Single view COMPARISON: 07/26/2019 FINDINGS: No change in the endotracheal tube or nasogastric tube. The lungs are well expanded. There are infiltrates in the right lung base. No pleural effusions identified. IMPRESSION: Development of infiltrates in the right lung base. Electronically signed by Barrie Garcia 07/27/2019 7:42 AM
[2019-07-27 07:56] LABS: FERRITIN 51 ng/mL (30-400)
[2019-07-27] MEDS: NS 1,000 ML IV SCH ×2 (08:21→17:38)
[2019-07-27] MEDS: SOLU-MEDROL IV SCH ×3 (08:56→19:51)
--- NOTE | 2019-07-27 10:52 | PROGRESS NOTE ---
DATE: 07/27/2019 SUBJECTIVE: This patient is on mechanical ventilation and sedated, it looks like his kidney function is getting better. He has been admitted due to overdose. Apparently he was found with a bottle with multiple pills, I am not sure what kind of pills they were, but he has a urine toxicology positive for opiates, and also he has positive cannabinoids in the urine. He is wheezing bilaterally, I will add steroids to his treatment. He has a history of COPD as well. The FiO2 has been decreased from 100% to 80%. We will continue to monitor. Pulmonary Department has been consulted. OBJECTIVE: Vital Signs: Temperature 98.5 degrees, pulse 80, respiratory rate 20, blood pressure 142/75, oxygen saturation 99 on mechanical ventilation. HEENT: Head normocephalic, no trauma. A sluggish response to eye stimulation in the pupils. Neck: Supple. No JVD. No masses. Central trachea. Chest: Decreased breath sounds globally, with expiratory wheezing bilaterally. Some rhonchi at the bases, especially on the right base with some crepitus as well. Abdomen: Soft, nontender, nondistended. Protuberant. No hepatosplenomegaly. Extremities: 3+ lower extremity edema. No clubbing. No cyanosis. Neurological: The patient is on mechanical ventilation and sedated. LABORATORY: WBC 8.7, hemoglobin 12.8, hematocrit 41.9, platelets 153,000. Sodium 142, potassium 4.4, chloride 104, bicarbonate 27, BUN 22, creatinine 1.1, glucose 91. Calcium 8.4. Folic acid is low at 6.6. ASSESSMENT AND PLAN: 1. Overdose, possible, for opiate use. He was apparently found unresponsive, with an empty bottle with multiple pills, multiple different pills. We are not sure how much he took. He has been placed on mechanical ventilation. I believe he also aspirated. He has some infiltrate at the right base. I will continue broad-spectrum antibiotics. I will continue with mechanical ventilation. Pulmonary Department has been consulted. Continue with gentle IV fluids. 2. Acute hypoxemic and hypercarbic respiratory failure. Continue with mechanical ventilation. I have placed this patient on antibiotics due to aspiration pneumonia, also steroids due to chronic obstructive pulmonary disease exacerbation, this is multifactorial. 3. Chronic obstructive pulmonary disease exacerbation. As above, continue with steroids. 4. Right lower lung pneumonia, likely aspiration pneumonia. Continue with broad spectrum antibiotics. 5. Acute kidney injury, this is getting better. 6. History of hypertension. Aware. 7. Chronic back pain with chronic opioid use. Aware. 8. Folic acid deficiency. 9. Possible iron deficiency as well. 10. Nutritional status. I have requested an evaluation by the dietitian, I will drop the IV fluids a little. 11. He had bilateral lower extremity edema. I will ask for an echocardiogram to rule out any cardiac issues. The last echocardiogram was done a long time ago in 2014, and had a good ejection fraction, I believe, some pulmonary hypertension. 12. Deep vein thrombosis prophylaxis. For now, I will go ahead and use some SCDs. I saw some blood in the canister when they were aspirating this patient, I will make sure that the hemoglobin is not dropping from now on and I will probably put this patient on Lovenox in a few days. cc: Mark Loenardo MD
--- NOTE | 2019-07-27 16:35 | PULMONOLOGY CONSULTATION ---
DATE: 07/27/2019 HISTORY OF PRESENT ILLNESS: Mr. Brody is a 68-year-old white male with history of tobacco use, history of chronic pain syndrome, who was found unresponsive by his family and brought to the emergency room. He was disoriented and combative and hypoxemic. Toxicology was positive for opioids and cannabinoids. He did not respond to Narcan. The patient was intubated, initiated on mechanical ventilation around 4 p.m. yesterday. PAST MEDICAL HISTORY: 1. COPD. 2. Nicotine addiction with ongoing tobacco use. 3. Chronic pain syndrome. 4. Hypertension. 5. History of prior overdoses. 6. History of nephrolithiasis. 7. Cholecystectomy. SOCIAL HISTORY: Ongoing tobacco use. No alcohol use listed. FAMILY HISTORY: Positive for heart disease and scleroderma. REVIEW OF SYSTEMS: Cannot be obtained. PHYSICAL EXAMINATION: General: Reveals an obese white male on mechanical ventilation. His propofol has been discontinued. He is having copious secretions. He is following commands. OBJECTIVE: Vital Signs: The patient has been afebrile for the last 24 hours. Blood pressure 133/75, heart rate 17, respiratory rate 16, oxygen saturation 96% on 50% FiO2. HEENT: Pupils are equal and reactive. Oropharynx is clear. Neck: Supple. Chest: Reveals scattered rhonchi bilaterally. Cardiac: S1-S2. Abdomen: Soft and obese. Extremities: Reveal trace edema. LABORATORIES: Chest x-ray reveals infiltrates at the right lung base. White blood count 8.77, hemoglobin 12.8, platelet count 153,000. Arterial blood gas this morning on mechanical ventilation, pH 7.52, pCO2 of 35, PO2 of 216. IMPRESSION: A 68-year-old with 1. Acute hypoxemic and acute hypercapnic respiratory failure. 2. Opioid overdose, suspect non-intentional but this will need to be clarified. 3. Nicotine addiction with ongoing tobacco use with significant carboxyhemoglobin level in his blood at the time of admission. 4. Chronic pain syndrome. 5. Aspiration pneumonia. PLAN: 1. Extubation. I stood at the bedside for greater than 30 minutes and his propofol was discontinued. He had a good ventilatory effort with a good oxygen saturation. He was extubated under my direction and is currently tolerating extubation on 50% FiO2. 2. Send a sputum for C and S. 3. Continue current antibiotic regimen pending results of sputum culture. 4. Educate about the importance of smoking cessation. Time spent in critical care management: 30+ minutes cc: Martin Ortiz MD [email or web address]
[2019-07-27] MEDS: SODIUM CHLORIDE 0.9% INJ SCH (18:20)
[2019-07-27] MEDS: ATIVAN IV PRN (19:51)
--- NOTE | 2019-07-27 20:32 | HISTORY AND PHYSICAL ---
CHIEF COMPLAINT: Altered mental status. HISTORY OF PRESENT ILLNESS: This is a 68-year-old gentleman who presented to the emergency room via EMS after being found unresponsive by his family. There are no family members present at the time of my exam. Therefore, the history is taken from the chart and the nursing staff. Evidently, the patient was found unresponsive. On his person was found a small blue pill bottle that was filled with different pills. This has been sent to pharmacy for the pills to be identified. It is reported that the patient had Narcan en route with no change in status. He was reported to have an O2 saturation of 42% on room air on EMS arrival. A nasal trumpet was placed on the scene and epistaxis did result. He arrived with snoring respirations and he was tachycardic and was intubated on arrival to the emergency room. At the time of my exam, he is intubated and sedated. PAST MEDICAL HISTORY: Taken from prior admissions: 1. Chronic pain, on chronic opiates via pain clinic. 2. Chronic obstructive pulmonary disease on home O2. 3. Continued tobacco use. 4. History of illicit drug abuse. PAST SURGICAL HISTORY: Cholecystectomy, kidney stone removal. ALLERGIES: Morphine causes itching and penicillin causes a rash. HOME MEDICATIONS: Unknown at this time. REVIEW OF SYSTEMS: Unable to obtain. PHYSICAL EXAMINATION: GENERAL: This is a 68-year-old gentleman who is lying on the stretcher in the emergency room. He is sedated and intubated at present. VITAL SIGNS: Blood pressure is 123/67 with a heart rate of 64, respirations are 20, temperature was 97.6 degrees with O2 saturations 100% on 100% O2. EYES: Pupils are 1 to 2 mm and fixed. Sclerae anicteric. HENT: Head is normocephalic, atraumatic. Mucous membranes are dry. NECK: Supple with trachea midline. CARDIOVASCULAR: Regular rate and rhythm. S1 and S2 are appreciated. LUNGS: Respirations are per ventilator with rhonchi noted throughout. CHEST: Does rise and fall symmetric with respiration. GASTROINTESTINAL: Abdomen is soft with bowel sounds in all 4 quadrants. NEUROLOGIC: He is sedated and intubated. SKIN: Warm and dry. LABORATORIES: 1. WBC is 9.2 with hemoglobin 14.2, hematocrit 47.3, and platelets 199,000. INR 0.95. Sodium is 145, potassium 5.4, BUN 28, creatinine 1.5 with a glucose of 147. CPK is 286. Troponin is 22. TSH 2.2. ABGs, pH 7.21 with pCO2 of 86, PO2 of 128, bicarbonate 27.2. These are being bagged. 2. Urine drug screen is positive for opiates and cannabinoids. Blood alcohol, none detected. 3. Chest x-ray status post intubation: There is questionable atelectasis in the lateral right lower lobe. ASSESSMENT: 1. Medication overdose. 2. Chronic pain in a patient with a history of chronic opiate use via pain clinic. 3. Acute respiratory failure with chronic opiate use. 4. Acute respiratory failure, status post intubation. 5. Acute hypoxemic hypercapnic respiratory failure. 6. Acute kidney injury. 7. Hyperkalemia. 8. Chronic obstructive pulmonary disease, on home oxygen. PLAN: 1. The patient will be admitted to ICU and placed on telemetry on a propofol drip per protocol. 2. Consult Pulmonology. 3. Antibiotic coverage of Merrem. 4. Steroids. 5. Give Protonix IV q.12 hours. 6. Right lower lobe pneumonia. 7. Nicotine addiction with ongoing tobacco use. Dictated by JOLEEN Bates for Mark Leonardo MD cc: JOLEEN Bates MD
[2019-07-28] MEDS: SOLU-MEDROL IV SCH ×4 (02:14→19:22)
[2019-07-28 05:23] LABS: ALLEN TEST YES; BE 3.8 mmoll (-3.0-3.0); BLOOD TYPE ARTERIAL; HCO3-(ACT) 27.8 mmoll (20.0-26.0); METHB 1.1 % (0.0-1.5); O2(CT) 19.8 mL/dL (15.0-23.0); O2HB 95.6 % (95.0-99.0); PO2(98.6) 90 mmHg (60-100); SAMPLE BLOOD; SAO2 98.1 % (95.0-100.0); THB 14.7 g/dL (11.5-17.4); pH(98.6) 7.38 (7.35-7.45)
[2019-07-28 05:25] LABS: MODALITY VENTIMASK
[2019-07-28 05:27] LABS: PCO2(98.6) 51 mmHg (35-45)
[2019-07-28] MEDS: PROTONIX IV SCH ×2 (06:44→18:24)
[2019-07-28] MEDS: MERREM 1 GM in NS 50 ML IV SCH ×2 (06:44→18:24)
[2019-07-28 07:18] LABS: AGAP 15; BUN 24 mg/dL (8-22); CALCIUM 8.7 mg/dL (8.8-10.2); CHLORIDE 104 mmol/L (98-107); COSMO 285; CREATININE 1.1 mg/dL (0.7-1.2); ESTIMATED GFR > 60; GLUCOSE 122 mg/dL (70-104); POTASSIUM 4.8 mmol/L (3.5-5.1); SODIUM 140 mmol/L (136-145); TCO2 21 mmol/L (25-35)
[2019-07-28] MEDS: NICODERM PATCH TD SCH (08:22)
[2019-07-28 09:10] LABS: BASO# 0.01 X1000 (0.0-0.2); BASO% 0.1 % (0.0-0.8); HEMATOCRIT 45.1 % (42.0-52.0); HEMOGLOBIN 14.3 g/dL (14.0-18.0); IMM GRAN# 0.02 X1000 (0.0-0.04); IMM GRAN% 0.1 % (0.0-0.5); LYMPH# 0.81 X1000 (1.2-3.4); LYMPH% 5.7 % (20.5-51.1); MCH 31.1 PG (27-31); MCHC 31.7 g/dL (33-37); MONO# 0.34 X1000 (0.11-0.59); MONO% 2.4 % (1.7-9.3); NEUT# 13.06 X1000 (1.4-6.5); NEUT% 91.7 % (42.2-75.2); PLT 190 X1000 (130-400); RDW 13.9 % (11.5-14.5); WBC 14.24 X1000 (4.8-10.8)
--- NOTE | 2019-07-28 09:11 | Diag Imaging Result Doc PS360 ---
CHEST-PORTABLE - 07/28/2019 INDICATION: intubated COMPARISON: 07/27/2019 FINDINGS: The patient has been extubated. The lungs are clear. Heart size is normal. No pneumothorax or pleural effusion. IMPRESSION: No acute disease. Electronically signed by Lucio Bejarano 07/28/2019 9:08 AM
[2019-07-28] MEDS ORDERED: DUONEB (A & A) INH PRN (09:44)
--- NOTE | 2019-07-28 10:12 | PROGRESS NOTE ---
DATE: 07/28/2019 SUBJECTIVE: This patient has been extubated yesterday. He seems to be awake, alert. He is following commands. He is tolerating ice chips. I will put him on a diet. Will do a bedside swallow evaluation. I will continue with antibiotics. He is still wheezing bilaterally. I will continue with steroids. I will add breathing treatment. I will ask Physical Therapy and Occupational Therapy to evaluate this patient. Otherwise, I will continue with the same management. OBJECTIVE: Vital Signs: Temperature 99.7 degrees, pulse 94, respiratory rate 11, blood pressure 157/96, oxygen saturation 95% on 4 L of nasal cannula. HEENT: Head normocephalic. No trauma. PERRLA. Neck: Supple. No JVD. No masses. Central trachea. Chest: Decreased breath sounds globally with expiratory wheezing and prolonged expiratory phase. Some rhonchi, especially at the right base. Abdomen: Soft, protuberant, nontender, nondistended. No hepatosplenomegaly. Extremities: There is 2+ to 3+ lower extremity edema. No clubbing. No cyanosis. Neurological: The patient is awake, alert. He is oriented. He is following commands. LABORATORY DATA: WBC 14.2, hemoglobin 14.3, hematocrit 45.1, platelets 190,000. Sodium 140, potassium 4.8, chloride 104, bicarbonate 21, BUN 24, creatinine 1.1, glucose 122, calcium 8.7. ASSESSMENT AND PLAN: 1. Overdose, possible for opioid use. This is not the first time that this patient has an overdose for medications. He was found apparently unresponsive with a bottle with multiple different pills. I am not quite sure how much he took, but he has a urine toxicology that showed opiates and cannabinoids. 2. Acute hypoxemic and hypercarbic respiratory failure. Continue with the same management for now. He is tolerating oxygen through a nasal cannula. He has been extubated yesterday. 3. Acute chronic obstructive pulmonary disease exacerbation. I will put this patient on breathing treatment. He is on antibiotics and steroids. 4. Acute kidney injury, likely on chronic kidney disease. This is his baseline. 5. History of hypertension. Aware. 6. Right lower lung pneumonia, likely due to aspiration. Continue with antibiotics. 7. Chronic back pain with chronic opioid use. Aware. 8. Folic acid deficiency. Continue to monitor. 9. Possible iron deficiency as well. I will put this patient on ferrous sulfate and folic acid. 10. Nutritional status. I will start this patient on a diet today. 11. Bilateral lower extremity edema. I asked for a new echocardiogram to rule out any cardiac issues. Last echocardiogram done some time ago in 2014 with good ejection fraction and probably some pulmonary hypertension. 12. Deep vein thrombosis prophylaxis. For now, will continue with sequential compression devices, but since hemoglobin and hematocrit have been stable and no signs of bleeding, I will go ahead and put him on Lovenox. 13. Gastrointestinal prophylaxis. Continue with pantoprazole. CRITICAL CARE TIME: 30 minutes. cc: Mark Leonardo MD
[2019-07-28] MEDS: FERROUS SULFATE PO SCH (10:47)
[2019-07-28] MEDS: FOLIC ACID PO SCH (10:47)
[2019-07-28] MEDS: TYLENOL PO PRN (11:35)
[2019-07-28] MEDS: ATIVAN IV PRN ×2 (11:35→19:27)
[2019-07-28] MEDS: DUONEB (A & A) INH SCH ×4 (11:56→23:15)
--- NOTE | 2019-07-28 13:15 | ECHO REPORT ---
ORDER DATE: 07/27/2019 MEASUREMENTS: Septal thickness 1.2, left ventricular internal diameter in diastole 4.7, posterior wall thickness 1.1, left ventricular internal diameter in systole 3.4, aortic root 3.3. SUMMARY: 1. Technically difficult study due to limited acoustic window quality. Intravenous echo contrast agent, Optison, was utilized to enhance endocardial definition. 2. Aortic valve is not well imaged, but appears to be free of structural abnormality, and opens adequately on 2-dimensional images. The peak gradient across the aortic valve is approximately 12 mmHg, with a mean gradient of 6 mmHg. Mitral and tricuspid valves are without gross structural abnormality, while pulmonic valve is not seen. There is trace tricuspid regurgitation. The aortic root is normal in size. 3. Normal left ventricle dimension is suggested on 2-dimensional images. The estimated left ventricular ejection fraction appears to be at least 60%. No regional wall motion abnormality can be appreciated. Left atrium, right atrium, and right ventricle are normal in size with grossly preserved right ventricular systolic function. 4. No pericardial effusion. 5. Appearance of the inferior vena cava suggests elevated central venous pressure. CONCLUSIONS: 1. Technically difficult study. 2. No significant valvular abnormality evident. 3. Normal left ventricular ejection fraction without regional wall motion abnormality evident. 4. Elevated central venous pressure suggested. cc: MD Mark Ann MD
--- NOTE | 2019-07-28 16:18 | PULMONOLOGY PROGRESS NOTE ---
DATE: 07/28/2019 SUBJECTIVE: The patient is arousable. He does not know how he may have overdosed. He does not recall events immediately prior to coming to the hospital. OBJECTIVE: Vital Signs: Maximum temperature in the last 24 hours is 100.6 degrees. Blood pressure 146/87, heart rate 91, respiratory rate 18, oxygen saturation 93% on nasal cannula. HEENT: Pupils are equal and reactive. Oropharynx appears clear but dry. Neck: Supple. Chest: Reveals scattered wheezing and rhonchi bilaterally. Cardiac Exam: S1-S2. Abdomen: Obese and soft. Extremities: Reveal no significant edema. LABORATORIES: White blood count 14.24, hemoglobin 14.3, platelet count 190,000. Sodium 140, potassium 4.8, chloride 104, bicarbonate 21, BUN 24, creatinine 1.1, glucose 122. Arterial blood gas reveals a pH 7.38, pCO2 of 51, pO2 of 90. Sputum culture reveals preliminary growth, but more incubation is required. IMAGING: Chest x-ray reveals clearing of the lung negro. IMPRESSION: A 68-year-old with 1. Acute hypoxemic and acute hypercapnic respiratory failure. 2. Opioid overdose. 3. Nicotine addiction with ongoing tobacco use. 4. Significant bronchospasm with wheezing. 5. Aspiration with improving x-ray. PLAN: 1. Continue current antibiotics pending results of sputum culture. 2. Continue bronchodilators and steroids. 3. Suggest family have an alternate mechanism for the patient's medication distribution. Would see if there is a family member that can provide his daily dosing given his recurrent admission with drug overdose. 4. Educate about the importance of smoking cessation. cc: Martin Ortiz MD
[2019-07-28] MEDS: SODIUM CHLORIDE 0.9% INJ SCH (18:24)
[2019-07-29] MEDS: ATIVAN IV PRN (00:09)
[2019-07-29] MEDS: SOLU-MEDROL IV SCH ×3 (03:00→20:59)
[2019-07-29] MEDS: DUONEB (A & A) INH SCH ×6 (05:37→23:08)
[2019-07-29] MEDS: PROTONIX IV SCH ×2 (06:03→19:39)
[2019-07-29] MEDS: MERREM 1 GM in NS 50 ML IV SCH ×2 (06:03→19:38)
--- NOTE | 2019-07-29 07:01 | Diag Imaging Result Doc PS360 ---
CHEST-PORTABLE - 07/29/2019 INDICATION: intubated COMPARISON: 07/28/2019 FINDINGS: The lungs are normally expanded and clear. Heart size and mediastinal contours are normal. No pneumothorax or pleural effusion. IMPRESSION: Negative exam. Electronically signed by Lucio Bejarano 07/29/2019 6:58 AM
[2019-07-29 07:55] LABS: BASO# 0.01 X1000 (0.0-0.2); BASO% 0.1 % (0.0-0.8); HEMATOCRIT 45.2 % (42.0-52.0); HEMOGLOBIN 14.4 g/dL (14.0-18.0); IMM GRAN# 0.05 X1000 (0.0-0.04); IMM GRAN% 0.3 % (0.0-0.5); LYMPH# 0.76 X1000 (1.2-3.4); MCH 30.7 PG (27-31); MCHC 31.9 g/dL (33-37); MCV 96.4 FL (81-99); MONO# 0.48 X1000 (0.11-0.59); MONO% 3.1 % (1.7-9.3); MPV 10.9 FL (7.4-10.4); NEUT# 14.04 X1000 (1.4-6.5); NEUT% 91.5 % (42.2-75.2); PLT 215 X1000 (130-400); RBC 4.69 XMIL (4.7-6.1); RDW 13.9 % (11.5-14.5); WBC 15.34 X1000 (4.8-10.8)
[2019-07-29 08:12] LABS: AGAP 10; BUN 31 mg/dL (8-22); CALCIUM 9.2 mg/dL (8.8-10.2); CHLORIDE 104 mmol/L (98-107); COSMO 292; ESTIMATED GFR > 60; GLUCOSE 141 mg/dL (70-104); POTASSIUM 4.5 mmol/L (3.5-5.1); SODIUM 142 mmol/L (136-145); TCO2 28 mmol/L (25-35)
[2019-07-29] MEDS: FERROUS SULFATE PO SCH (08:14)
[2019-07-29] MEDS: FOLIC ACID PO SCH (08:14)
[2019-07-29] MEDS: NICODERM PATCH TD SCH (08:14)
[2019-07-29] MEDS: LOVENOX SUBQ SCH (08:14)
--- NOTE | 2019-07-29 10:18 | EKG Report ---
Test Performed on : 07/26/2019 4:21:35 PM Test Reason : ED. No order in [place] Blood Pressure : / mmHG Vent. Rate : 076 BPM Atrial Rate : 076 BPM P-R Int : 190 ms QRS Dur : 092 ms QT Int : 408 ms P-R-T Axes : 068 062 071 degrees QTc Int : 459 ms Normal sinus rhythm. Low voltage QRS Borderline ECG No previous ECGs available Unconfirmed Result
[2019-07-29] MEDS: TYLENOL PO PRN (10:49)
--- NOTE | 2019-07-29 11:41 | PROGRESS NOTE ---
DATE: 07/29/2019 SUBJECTIVE: The patient has been extubated 2 days ago. He seems to be awake, alert and following commands. He seems to be tolerating diet as well, and having bowel movements. I will transfer this patient to the floor. I will decrease the dose of the steroids as well. I requested Physical Therapy to evaluate this patient. As per the patient he is on home O2. OBJECTIVE: Vital Signs: Temperature 99.2 degrees, pulse 93, respiratory rate 14, blood pressure 124/84, oxygen saturation is 94% on 3 L of nasal cannula. HEENT: Head is normocephalic and atraumatic. PERRLA. Neck: Supple. No JVD. No masses. Central trachea. Chest: Decreased breath sounds globally with expiratory wheezing. Prolonged expiratory phase. Some rhonchi especially at the right base. Abdomen: Soft, protuberant, nontender, nondistended. No hepatosplenomegaly. Extremities: With 2 to 3+ lower extremity edema. No clubbing. No cyanosis. Neurological: The patient is awake, alert, he is oriented, he is following commands. LABORATORY DATA: WBC is 15.3, hemoglobin 14.4, hematocrit 45.2, platelets 215,000. Sodium 145, potassium 4.5, chloride 104, bicarbonate 28, BUN 31, creatinine 1, glucose 141, calcium 9.2. ASSESSMENT AND PLAN: 1. Overdose. Positive for opioid use. This is not the first time that this patient has been having an overdose for these medications. He was found apparently unresponsive with a bottle with multiple pills. I am not quite sure if he took other medications along with the opioids. Urine toxicology showed opiates and cannabinoids. 2. Acute on chronic hypoxemic and hypercarbic respiratory failure. Continue with same management for now. As per the patient he is on home oxygen. He has been extubated 2 days ago. 3. Acute chronic obstructive pulmonary disease exacerbation. Continue breathing treatment, oxygen supplementation and steroids which I will decrease the frequency. He is on antibiotics. 4. Acute kidney injury. This is his baseline likely on chronic kidney disease. 5. History of hypertension. Aware. 6. Right lower lobe pneumonia with a radiographic improvement. Continue with antibiotics. 7. Chronic back pain on chronic opioid use. Aware. 8. Folic acid deficiency. Continue to monitor. 9. Possible iron deficiency as well. This patient has been placed on ferrous sulfate. 10. Nutritional status. Continue with his diet. 11. Bilateral lower extremity edema. Ultrasound done a couple of days ago showed a normal left ventricular ejection fraction and elevated central venous pressure is suggested. Probably this patient has pulmonary hypertension. 12. DVT prophylaxis. Continue with Lovenox. 13. Gastrointestinal prophylaxis with pantoprazole. cc: Mark Leonardo MD
[2019-07-29] MEDS: ULTRAM PO PRN ×2 (16:40→22:10)
[2019-07-30] MEDS: DUONEB (A & A) INH SCH ×2 (03:02→07:52)
--- NOTE | 2019-07-30 03:11 | PULMONOLOGY PROGRESS NOTE ---
DATE: 07/29/2019 SUBJECTIVE: The patient is awake, alert and conversant. He is without specific complaints. OBJECTIVE: Vital Signs: BP is 162/88, heart rate is 92, respiratory rate is 20, oxygen saturation is 95% on 3 L per nasal cannula. HEENT: Pupils are equal and reactive. Oropharynx appears clear. Neck: Supple. Chest: Reveals prolonged expiratory phase with scattered wheezing. Cardiac: S1, S2. Abdomen: Soft and obese. Extremities: Reveals 1 to 2+ peripheral edema. LABORATORY DATA: Chest x-ray reveals no evidence of disease. Sputum culture requires additional growth. White blood count is 15.3, hemoglobin is 14.4, platelet count is 215,000. Sodium 142, potassium 4.5, chloride 104, bicarbonate 28, BUN 31, creatinine 1.0. IMPRESSION: A 68-year-old with: 1. Acute hypoxemic and acute hypercapnic respiratory failure. 2. Chronic obstructive pulmonary disease exacerbation. 3. Opioid overdose. 4. Aspiration on presentation with clearing of x-ray. PLAN: 1. Continue current antibiotic regimen. 2. Continue bronchodilators. The patient could be transitioned to oral steroids. 3. Encourage the patient to stop smoking. cc: Martin Ortiz MD
[2019-07-30] MEDS: ULTRAM PO PRN (04:17)
[2019-07-30 05:05] LABS: BASO# 0.01 X1000 (0.0-0.2); BASO% 0.1 % (0.0-0.8); HEMATOCRIT 44.4 % (42.0-52.0); HEMOGLOBIN 14.4 g/dL (14.0-18.0); IMM GRAN# 0.02 X1000 (0.0-0.04); IMM GRAN% 0.2 % (0.0-0.5); LYMPH# 0.65 X1000 (1.2-3.4); LYMPH% 6.5 % (20.5-51.1); MCH 31.2 PG (27-31); MCHC 32.4 g/dL (33-37); MCV 96.1 FL (81-99); MONO# 0.55 X1000 (0.11-0.59); MONO% 5.5 % (1.7-9.3); MPV 10.7 FL (7.4-10.4); NEUT# 8.75 X1000 (1.4-6.5); NEUT% 87.7 % (42.2-75.2); PLT 199 X1000 (130-400); RBC 4.62 XMIL (4.7-6.1); RDW 14.1 % (11.5-14.5); WBC 9.98 X1000 (4.8-10.8)
[2019-07-30 05:23] LABS: AGAP 9; ALB/GLOB RATIO 1.5; ALBUMIN 3.7 g/dL (3.5-5.0); ALKALINE PHOSPHATASE 80 U/L (32-122); BUN 30 mg/dL (8-22); CALCIUM 8.9 mg/dL (8.8-10.2); CHLORIDE 101 mmol/L (98-107); COSMO 284; ESTIMATED GFR > 60; GLUCOSE 132 mg/dL (70-104); GOT 16 U/L (10-34); GPT 21 U/L (10-44); POTASSIUM 4.2 mmol/L (3.5-5.1); SODIUM 138 mmol/L (136-145); TCO2 28 mmol/L (25-35); TOTAL PROTEIN 6.1 g/dL (6.3-8.3)
[2019-07-30 05:27] LABS: LYMPHS 6 % (21-51); MONO 2 % (1-9); SEGS 88 % (42-75)
[2019-07-30] MEDS: MERREM 1 GM in NS 50 ML IV SCH (06:22)
[2019-07-30] MEDS: PROTONIX IV SCH (06:23)
[2019-07-30 08:05] VITALS: BP 161/76
[2019-07-30] MEDS: FERROUS SULFATE PO SCH (08:28)
[2019-07-30] MEDS: SOLU-MEDROL IV SCH (08:28)
[2019-07-30] MEDS: NICODERM PATCH TD SCH (08:28)
[2019-07-30] MEDS: FOLIC ACID PO SCH (08:28)
[2019-07-30] MEDS: LOVENOX SUBQ SCH (08:28)
--- NOTE | 2019-07-30 15:44 | DISCHARGE SUMMARY ---
DATE: 07/30/2019 DISCHARGE DIAGNOSIS: 1. Overdose probably due to opioid abuse. 2. Acute on chronic hypoxemic and hypercarbic respiratory failure. 3. Acute COPD exacerbation. 4. Acute kidney injury on chronic kidney disease. 5. History of hypertension. 6. Right lower lobe pneumonia with radiographic improvement, probably due to aspiration. 7. Chronic back pain and chronic opioid use. 8. Folic acid deficiency. 9. Possible iron deficiency as well. 10. Bilateral lower extremity edema. PROCEDURES PERFORMED: 1. Chest x-ray dated 08/03/2019, impression: Questionable atelectasis in the lateral right lower lobe. 2. Echocardiogram dated 07/27/2019, conclusion: No significant valvular abnormality. Normal left ventricular ejection fraction without regional wall motion abnormality, elevated central venous pressure is suggested. 3. Chest x-ray dated 07/31/2019, impression: Development of infiltrates in the right lower lung. 4. Chest x-ray dated 07/28/2019, impression: No acute disease. The endotracheal tube has been removed. 5. 07/29/2019 impression: Negative exam. CONSULT: Pulmonary Department, Dr. Ortiz. HOSPITAL COURSE: A 68-year-old male with a past medical history of chronic pain on chronic opiate use, COPD on home O2, tobacco use, history of illicit drug abuse, presented to the emergency department, was admitted on 07/26/2019, apparently he was found unresponsive by his family and brought to the emergency department via EMS, no family members at the bedside at the moment of our first examination, but he was already intubated. Like I mentioned before, he was found unresponsive. Apparently, he had a small bottle that was filled with different pills on his hand, it is reported that this patient had Narcan in route with no change in status. He was reported to have an oxygen saturation really low around 40s on room air, a nasal trumpet was placed on the scene and epistaxis did resolve. He arrived with snoring respiration and he was tachycardic and was intubated on arrival to the emergency room, at the moment of my exam he was intubated and sedated, he was transferred to the ICU. Chest x-ray showed the possibility of right lower lobe pneumonia, probably due to aspiration, he was placed on broad-spectrum antibiotics. He was evaluated by Pulmonary Department. We put this patient on steroids because of his COPD, also breathing treatment and mechanical ventilation support, he was extubated on 07/27/2019, I do believe the overdose was non intentional, I had a large conversation with this patient about how he needs to take his pills and actually he states that he lives with his and she has been taking care of that lately, he has multiple admissions before because of overdose as well, the patient seems to be improving. I will discharge this patient today. I will stop the IV antibiotics and steroids and I will put him on p.o. treatment, but the patient will continue with nebulizations at home. He also will continue with oxygen supplementation. VITAL SIGNS: Temperature 98.2 degrees, pulse 63, respiratory rate 17, blood pressure 161/76, oxygen saturation 93 L of nasal cannula. HEENT: Head normocephalic, no trauma. PERRLA neck is supple. No JVD. No masses. Central trachea. Chest: Decreased breath sounds globally with mild end expiratory wheezing scattered, some rhonchi at the right base. Abdomen: Soft, protuberant, nontender, nondistended. No hepatosplenomegaly. Extremities: 2+ lower extremity edema. No clubbing. No cyanosis. Neurological: The patient is awake, alert. She is oriented x3. No focal deficits. LABORATORY: WBC 9.9, hemoglobin 14.4, hematocrit 44.4, platelets 199,000, sodium 138, potassium 4.2, chloride 101, bicarbonate 28, BUN 30, creatinine 1, glucose 132, calcium 8.9. ASSESSMENT AND PLAN: Overdose. DISCHARGE MEDICATIONS: 1. Albuterol sulfate 2 puff inhaler q. 4 to 6 hours as needed. 2. Bisoprolol hydrochlorothiazide 1 tablet p.o. daily, 2.5/6.25 mg p.o. tablet. 3. Esomeprazole 40 mg p.o. daily. 4. Ferrous sulfate 325 mg p.o. daily. 5. Advair Diskus 1 puff inhaler b.i.d. 6. Folic acid 1 mg p.o. daily. 7. Furosemide 20 mg p.o. daily. 8. Gabapentin 800 mg p.o. 4 times a day. 9. [place] 10 3 mg p.o. t.i.d. as needed. 10. Levofloxacin 750 mg p.o. daily. 11. Lisinopril 1 tablet p.o. daily 20 mg. 12. Medrol Dosepak as directed. 13. Potassium chloride 10 mEq p.o. daily. 14. Tamsulosin 0.4 mg p.o. daily. 15. Tizanidine 4 mg p.o. b.i.d. TIME DISCHARGING THIS PATIENT: 32 minutes. cc: Mark Leonardo MD
== END 2019-07-30 10:55 | disposition home or self-care (01) | DRG 917 ==
LOC: EDBD → SUPCPDRO → ED 15:26 → ICU 20:14 → 1N 07-29 13:36
PROVIDERS: ATTEND Internal Medicine